=== PATIENT | female | born 1970 | race Caucasian/White ===

== ENCOUNTER 2021-01-04 11:00 | Outpatient (REF) | payer OTHER, SELFPAY ==
--- NOTE | ~2021-01-04 | MM_ITS ---
EXAMINATION: MM DIAGNOSTIC DIGITAL BREAST TOMOSYNTHESIS, LEFT CLINICAL INFORMATION: Short interval six-month follow-up probable benign tightly grouped calcifications mid 12:00 left breast. No known family history breast cancer. The lifetime risk of breast cancer based on the Tyrer-Cuzick Model is 8%. COMPARISON: Mammography: 07/05/2020, 06/25/2020 (BI-RADS 0), 03/14/2019 TECHNIQUE: Digital breast tomosynthesis is performed in both the craniocaudal and mediolateral oblique views along with computer-aided detection (CAD). Synthesized 2D images are generated from the tomosynthesis. Additional magnification left CC and magnification left ML views are obtained. FINDINGS: There are scattered areas of fibroglandular density (ACR BI-RADS breast composition Category b). Parenchymal pattern is similar to prior studies. There is no interval mass or architectural abnormality or developing density. The tightly grouped calcifications mid 12:00 position for follow-up appear round with 2 larger oval foci. No significant change from prior magnification views. Left breast calcifications will be reassessed again at time of annual bilateral mammography, due in 6 months. Results are provided to the patient at time of visit by the technologist. MM/MM tomosynthesis diagnostic LT IMPRESSION: Probable benign calcifications mid 12:00 position similar to prior diagnostic exam. ASSESSMENT: BI-RADS 3: Probably Benign RECOMMENDATION: Diagnostic mammography at time of annual bilateral exam, due in 6 months. This patient's information was entered into a reminder system with a target due date for their next mammogram.
== END 2021-01-04 11:01 | disposition home or self-care (01) ==
LOC: HO.MAMMO 11:00
PROVIDERS: PCP Internal Medicine; Visit Provider Internal Medicine
DX: R92.0 Mammographic microcalcification found on diagnostic imaging of breast (principal)
CPT/HCPCS: 77061; 77065

== ENCOUNTER → 2021-02-01 12:43 | Outpatient (BNVA) | payer OTHER, SELFPAY | PROVIDERS: Visit Provider Student in an Organized Health Care Education/Training Program | DX: G56.03 Carpal tunnel syndrome, bilateral upper limbs (principal) | CPT/HCPCS: 99212 ==

== ENCOUNTER 2021-02-25 08:13 | Outpatient (REF) | payer OTHER, SELFPAY ==
--- NOTE | 2021-02-25 15:37 | MHC.AU.ANR ---
Adult Audiological Evaluation Date of Visit: 02/25/21 Reason for Appointment: Audiological evaluation. Patient reports occasional ear noises that she describes as a pulsing. The last time she noticed it was ~ 3 weeks ago. She believes she hears it in both ears. She denies any concerns for her hearing. Does patient feel they have a hearing loss?: No Has hearing been tested previously?: No Hearing Handicap Inventory: HHIE SCORE: 0 Based on HHIE score, patient has: No perceived hearing handicap Medical History: Medical History: Unremarkable Medication List: Doxycycline 50 mg, Naproxen 500 mg Otoscopy: Right Ear: Unremarkable Left Ear: Unremarkable Tympanometry: Tympanometry performed due to: To assess integrity of the middle ear system Right Ear: Normal Middle Ear System (Type A) Left Ear: Reduced Middle Ear Compliance (Type As) Hearing Evaluation: Transducer(s) Used: Insert Earphones, Bone Conduction Method: Conventional Audiometry Stimuli Used: Pure Tones Right Ear: Description of Hearing: Normal hearing from 250-8000 Hz. Left Ear: Description of Hearing: Normal hearing from 250-8000 Hz, with a slight conductive component at 500 and 4000 Hz. Thresholds are 5-15 dBHL worse than those in the right ear. Speech Recognition Threshold (SRT): Method Used: Monitored Live Voice Stimuli Used: Spondee Words Right Ear: 0 dBHL Left Ear: 5 dBHL Word Discrimination: Method: Recorded Lists Word Lists Used: NU-6 Right Ear: 100% at 40 dBHL Left Ear: 100% at 45 dBHL Recommendations: Audiological re-evaluation in one year or sooner if ear noises worsen or become more frequent or if changes to hearing are noted. Amplification is not warranted at this time. Diagnosis: Primary Diagnosis: H69.92 Unspecified Eustachian Tube Dysfunction, Left Ear Services Performed: Services Performed: Comprehensive Audiological Evaluation (CPT 48935) Tympanometry (CPT 72626) Signature: Student/Clinical Fellow: No
== END 2021-02-25 08:14 | disposition home or self-care (01) ==
LOC: HO.SH 08:13
PROVIDERS: Visit Provider Internal Medicine
DX: H69.92 Unspecified Eustachian tube disorder, left ear (principal)
CPT/HCPCS: 92557; 92567

== ENCOUNTER 2021-03-10 09:50 | Outpatient (REF) | payer OTHER, SELFPAY ==
--- NOTE | 2021-03-10 09:53 | EMG_ITS ---
Right median and ulnar motor and sensory studies were performed. Right radial sensory study was performed and paraspinal muscles were tested with needle. IMPRESSION: 1. 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 2. No evidence of radiculopathy. MD RAMILA Tapia/TORRIE / [id number]
== END 2021-03-10 09:51 | disposition home or self-care (01) ==
LOC: HO.NEURO 09:50
PROVIDERS: PCP Internal Medicine; Visit Provider Student in an Organized Health Care Education/Training Program
DX: G56.03 Carpal tunnel syndrome, bilateral upper limbs (principal); R20.0 Anesthesia of skin
CPT/HCPCS: 95886; 95909

== ENCOUNTER → 2021-03-15 15:12 | Outpatient (BNVA) | payer OTHER, SELFPAY | PROVIDERS: PCP Internal Medicine; Visit Provider Student in an Organized Health Care Education/Training Program | DX: G56.03 Carpal tunnel syndrome, bilateral upper limbs (principal) | CPT/HCPCS: 99212 ==

== ENCOUNTER 2021-07-08 12:26 | Outpatient (REF) | payer OTHER, SELFPAY ==
--- NOTE | ~2021-07-08 | MM_ITS ---
EXAMINATION: MM DIAGNOSTIC DIGITAL BREAST TOMOSYNTHESIS, BILATERAL CLINICAL INFORMATION: Due for yearly. Also follow-up probable benign tightly grouped calcifications mid 12:00 left breast. The lifetime risk of breast cancer based on the Tyrer-Cuzick Model is 8%. COMPARISON: Mammography: 01/04/2021, 07/05/2020, 06/25/2020 (BI-RADS 0), 03/25/2019, 03/14/2019. TECHNIQUE: Digital breast tomosynthesis is performed in both the craniocaudal and mediolateral oblique views along with computer-aided detection (CAD). Synthesized 2D images are generated from the tomosynthesis. Additional magnification views left breast are obtained in the CC and ML x2 projections. FINDINGS: There are scattered areas of fibroglandular density (ACR BI-RADS breast composition Category b). Parenchymal pattern is similar to prior studies. There is no interval mass or architectural abnormality. No developing density. There are scattered calcifications in each breast. No suspicious changes. The left breast calcifications for follow-up are similar to prior diagnostic exam. They are tightly grouped with 2 coarse smooth round calcifications and adjacent smaller fine calcifications. They will be reassessed again at next bilateral annual mammography. Results are provided to the patient at time of visit by the technologist. MM/MM tomosynthesis diagnostic BI IMPRESSION: 1. Left: Calcifications mid 12:00 position are stable from prior diagnostic exam, probably benign. 2. Right: No mammographic evidence of malignancy. ASSESSMENT: BI-RADS 3: Probably Benign RECOMMENDATION: Diagnostic mammography at time of next annual exam, due in 12 months. This patient's information was entered into a reminder system with a target due date for their next mammogram.
== END 2021-07-08 12:27 | disposition home or self-care (01) ==
LOC: HO.MAMMO 12:26
PROVIDERS: PCP Internal Medicine; Visit Provider Internal Medicine
DX: R92.1 Mammographic calcification found on diagnostic imaging of breast (principal)
CPT/HCPCS: 77062; 77066

== ENCOUNTER 2022-08-01 14:21 | Outpatient (REF) | payer OTHER, SELFPAY ==
--- NOTE | ~2022-08-01 | MM_ITS ---
EXAMINATION: MM DIAGNOSTIC DIGITAL BREAST TOMOSYNTHESIS, BILATERAL CLINICAL INFORMATION: Due for yearly. Follow-up probable benign tightly grouped calcifications mid 12:00 left breast adjacent to benign coarse calcification. TC score 8%. No known family history breast cancer. COMPARISON: Mammography: 07/08/2021, 01/04/2021, 07/05/2020, 06/25/2020 (BI-RADS 0) 03/25/2019, 03/14/2019 TECHNIQUE: Digital breast tomosynthesis is performed in both the craniocaudal and mediolateral oblique views along with computer-aided detection (CAD). Synthesized 2D images are generated from the tomosynthesis. Additional left magnification CC and left magnification ML views are obtained. FINDINGS: There are scattered areas of fibroglandular density (ACR BI-RADS breast composition Category b). Breast parenchymal pattern is similar to prior exams and there is no developing density or interval mass or architectural abnormality. The axilla and skin contours are unremarkable. No abnormal calcifications on the right. Left breast calcifications for follow-up, fine adjacent to coarse calcification mid central 12:00 position are stable to decreased. No increasing calcifications or interval pleomorphic changes or ductal distribution. The calcifications are now considered to be benign. Results are provided to the patient at time of visit by the technologist. MM/MM tomosynthesis diagnostic BI IMPRESSION: -No mammographic evidence of malignancy. -The calcifications left breast for follow-up are now considered to be benign. ASSESSMENT: BI-RADS 2: Benign RECOMMENDATION: Routine annual mammography screening. This patient's information was entered into a reminder system with a target due date for their next mammogram.
== END 2022-08-01 14:22 | disposition home or self-care (01) ==
LOC: HO.MAMMO 14:21
PROVIDERS: PCP Internal Medicine; Visit Provider Internal Medicine
DX: R92.1 Mammographic calcification found on diagnostic imaging of breast (principal)
CPT/HCPCS: 77062; 77066

== ENCOUNTER 2022-12-15 15:36 | Outpatient (REF) | payer OTHER, SELFPAY ==
--- NOTE | ~2022-12-15 | XR_ITS ---
EXAMINATION: XR KNEE AP STANDING CLINICAL INFORMATION: Pain in left knee COMPARISON: Right knee radiographs 09/21/2016 TECHNIQUE: AP bilateral standing view of the knees was obtained. FINDINGS: Bones and soft tissues are normal. No fracture or joint effusion. Alignment is anatomic. There is minimal medial joint space narrowing bilaterally. No abnormal soft tissue calcification. XR/XR knee standing BI IMPRESSION: Minimal medial compartmental narrowing bilaterally.
[2022-12-15 15:53] LABS: MANUAL DIFF FLAG NO
[2022-12-15 17:19] LABS: Basophils Absolute Auto 0.1 X10*3/uL (0.0-0.2); Basophils Percent Auto 1.3 % (0-2); Eosinophils Absolute Auto 0.2 X10*3/uL (0.0-0.4); Eosinophils Percent Auto 3.2 % (0-4); Imm Gran Abs Auto 0.02 X10*3/uL (0.00-0.03); Imm Gran Pct Auto 0.3 % (0.0-0.4); Lymphocytes Absolute Auto 2.7 X10*3/uL (1.2-4.9); Lymphocytes Percent Auto 38.7 % (20-40); Mean Corpuscular HGB Conc 33.3 g/dl (31.0-35.0); Mean Corpuscular Hemoglobin 28.4 pg (27.0-33.0); Mean Corpuscular Volume 85.3 fL (80.0-98.0); Mean Platelet Volume 10.6 fL (9.4-12.3); Monocytes Absolute Auto 0.6 X10*3/uL (0.1-1.2); Monocytes Percent Auto 8.9 % (2-11); Neutrophils Absolute Auto 3.3 x10*3/uL (2.0-8.3); Neutrophils Percent Auto 47.6 % (45-73); Platelet Count 287 X10*3/uL (160-400); Red Blood Count 4.57 X10*6/uL (4.20-5.50); Red Cell Distribution Width 13.6 % (11.0-16.0); White Blood Count 6.9 X10*3/uL (4.8-10.8)
[2022-12-15 17:57] LABS: Alanine Aminotransferase 32 U/L (0-31); Albumin Level 4.3 g/dL (3.5-5.0); Alkaline Phosphatase 66 U/L (39-117); Anion Gap 13 (12-20); Aspartate Amino Transferase 24 U/L (5-31); Bilirubin Total 0.6 mg/dL (0.0-1.0); Blood Urea Nitrogen 13 mg/dL (9-16); C Reactive Protein 0.47 mg/dL (< or = 0.50); Calcium 9.4 mg/dL (8.4-10.2); Carbon Dioxide 24 mmol/L (22-29); Chloride 108 mmol/L (96-108); Cholesterol 206 mg/dL; Estimated Glomerular Filt Rate > 60; Glucose Random 84 mg/dL (60-115); HDL Cholesterol 45 mg/dL; LDL Cholesterol Calculated 123 mg/dl; Sodium 141 mmol/L (135-145); Triglycerides 193 mg/dL
[2022-12-15 18:19] LABS: Free T4 (Free Thyroxine) 0.89 ng/dL (0.71-1.85); Thyroid Stimulating Hormone 2.12 uIU/mL (0.32-4.0); Vitamin B12 301 pg/mL (200-900); Vitamin D 25-OH Total 27.7 ng/mL (>30)
[2022-12-15 18:26] LABS: Erythrocyte Sedimentation Rate 16 MM/HR (0-20)
== END 2022-12-15 15:37 | disposition home or self-care (01) ==
LOC: HO.LAB 15:36
PROVIDERS: PCP Internal Medicine; Visit Provider Internal Medicine
DX: M25.562 Pain in left knee (principal); E66.9 Obesity, unspecified; E78.00 Pure hypercholesterolemia, unspecified
CPT/HCPCS: 36415; 73565; 80053; 80061; 82306; 82607; 82746; 84439; 84443; 85025; 85652; 86140

== ENCOUNTER 2023-01-30 14:30 | Outpatient (REF) | payer OTHER, SELFPAY ==
--- NOTE | ~2023-01-30 | US_ITS ---
EXAMINATION: US THYROID CLINICAL INFORMATION: Nontoxic goiter, unspecified. COMPARISON: None available. TECHNIQUE: Linear transducer grayscale and color Doppler examination with attention to the region of the thyroid. FINDINGS: SIZE: Measurements of the thyroid lobes and nodules are given in sagittal, anteroposterior and transverse dimensions respectively. Right Thyroid Lobe: 5.0 x 1.6 x 1.6 cm, volume 6.7 mL. Parenchyma: The gland echotexture is homogeneous. Thyroid vascularity is normal. Left Thyroid Lobe: 4.4 x 2.0 x 2.4 cm, volume 10.5 mL. Parenchyma: The gland echotexture is homogeneous. Thyroid vascularity is normal. Isthmus: 0.6 cm in maximum AP dimension. Estimated total number of nodules greater than or equal to 1 cm: 1. Telephone Technician nodules are described as follows: 1. Location: Right superior mid. Size: 0.7 x 0.4 x 0.6 cm, volume 0.09 mL. Nodule characteristics: Composition: Solid (2). Echogenicity: Hypoechoic (2). Shape: Not taller than wide (0). Margins: Ill-defined (0). Echogenic Foci: None (0). ACR TI-RADS total points: 4 ACR TI-RADS category: 4 2. Location: Left mid. Size: 2.3 x 1.6 x 1.7 cm, volume 3.3 mL. Nodule characteristics: Composition: Solid/almost completely solid (2). Echogenicity: Hypoechoic (2). Shape: Not taller than wide (0). Margins: Smooth (0). Echogenic Foci: None (0). ACR TI-RADS total points: 4 ACR TI-RADS category: 4 3. Location: Isthmus left inferior. Size: 0.5 x 0.7 x 0.7 cm, volume 0.1 mL. Nodule characteristics: Composition: Solid (2). Echogenicity: Hypoechoic (2). Shape: Not taller than wide (0). Margins: Ill-defined (0). Echogenic Foci: None (0). ACR TI-RADS total points: 4 ACR TI-RADS category: 4 NODES: There are small lymph nodes in the right neck, the largest measuring 1.2 x 0.3 x 0.6 cm. US/US thyroid IMPRESSION: Mild thyromegaly with benign-appearing lymph nodes. None of these are suspicious. Recommend continued follow-up. ACR TI-RADS RECOMMENDATION REFERENCE: Ultrasound-guided fine-needle aspiration, followup ultrasound, no further follow up. * TR1 (0 point) and TR2 (2 points): No FNA or follow up. * TR3 (3 points): FNA if more than or equal to 2.5 cm in maximum dimension, followup ultrasound in 1, 3 and 5 years if 1.5 to 2.4 cm in maximum dimension. * TR4 (4-6 points): FNA if more than or equal to 1.5 cm in maximum dimension, followup ultrasound in 1, 2, 3 and 5 years if 1 to 1.4 cm in maximum dimension. * TR5 (more than or equal to 7 points): FNA if more than or equal to 1 cm in maximum dimension, followup ultrasound every year for 5 years if 0.5 to 0.9 cm in maximum dimension. * TR3, TR4 or TR5 nodules that are below the size threshold for followup receive no follow up.
== END 2023-01-30 14:31 | disposition home or self-care (01) ==
LOC: HO.US 14:30
PROVIDERS: PCP Internal Medicine; Visit Provider Internal Medicine
DX: E04.9 Nontoxic goiter, unspecified (principal)
CPT/HCPCS: 76536

== ENCOUNTER → 2023-02-12 07:56 | Outpatient (BNVA) | payer OTHER, SELFPAY | PROVIDERS: PCP Internal Medicine; Visit Provider Advanced Practice Midwife ==

== ENCOUNTER 2023-02-28 09:03 | Outpatient (REF) | payer OTHER, SELFPAY ==
--- NOTE | ~2023-02-28 | XR_ITS ---
EXAMINATION: XR KNEE, LEFT CLINICAL INFORMATION: Left knee pain. COMPARISON: None available. TECHNIQUE: Limited 2 views of the left knee. FINDINGS: Bones and soft tissues are normal. No fracture or joint effusion. Alignment is anatomic. Joint spaces are well maintained. No abnormal soft tissue calcification. XR/XR knee LT 2V IMPRESSION: Limited two-view study. No overt acute abnormality. If pain persists or worsens, a 4 view left knee radiographic study is recommended.
== END 2023-02-28 09:04 | disposition home or self-care (01) ==
LOC: HO.HOSX 09:03
PROVIDERS: Visit Provider Physician Assistant
DX: M17.12 Unilateral primary osteoarthritis, left knee (principal)
CPT/HCPCS: 20610; 73560; 99202; J1040

== ENCOUNTER 2023-04-26 06:25 | Outpatient (REF) | payer OTHER, SELFPAY ==
--- NOTE | ~2023-04-26 | XR_ITS ---
EXAMINATION: XR KNEE, RIGHT CLINICAL INFORMATION: Right knee pain. COMPARISON: Most recent right knee radiographs dated 12/15/2022. TECHNIQUE: Clute and lateral views of the right knee. FINDINGS: Tiny patellofemoral compartment marginal osteophytes. No osseous erosion. No fracture or dislocation. Small joint effusion. No abnormal soft tissue calcification. XR/XR knee RT 2V IMPRESSION: Minimal patellofemoral arthrosis and small joint effusion.
== END 2023-04-26 06:26 | disposition home or self-care (01) ==
LOC: HO.HOSX 06:25
PROVIDERS: Visit Provider Physician Assistant
DX: M17.0 Bilateral primary osteoarthritis of knee (principal)
CPT/HCPCS: 20610; 73560; 99212; J1040

== ENCOUNTER 2023-05-01 13:43 | Outpatient (REF) | payer OTHER, SELFPAY | END 2023-05-01 13:44 | disposition home or self-care (01) | LOC: HO.SH 13:43 | PROVIDERS: Visit Provider Internal Medicine | DX: Z01.118 Encounter for examination of ears and hearing with other abnormal findings (principal); H93.293 Other abnormal auditory perceptions, bilateral | CPT/HCPCS: 92550; 92557 ==

== ENCOUNTER 2023-06-13 08:00 | Outpatient (RCR) | payer OTHER, SELFPAY ==
--- NOTE | 2023-06-11 10:21 | MHC.PT.EP ---
[facility] [place] [facility] [place] [facility] [place] [employer] [facility] [address] [phone] F: [phone] F: [phone] F: [phone] F: [phone] Physical Therapy Plan of Care Date of Evaluation: Date of Surgery: N/A Diagnosis: Unilateral primary osteoarthritis, left knee Assessment: Pt is a pleasant and motivated 52yo F who presents to PT with knee pain. She presents to PT with current impairments in pain, decreased R knee ROM, decreased quad strength, decreased hip/glute strength, decreased muscle length, decreased balance/proprioception and impaired gait. She is limited functionally by standing, stair navigation, walking, bending, and sleeping. She is an excellent candidate for skilled PT in order to address current impairments to facilitate return to PLOF. She is recommended to be seen 2x/week for 4 weeks and will be reassessed at that time. Frequency and Duration: The patient will be seen 2x/week for 4 weeks Short Term Goals: Pt will be I with HEP to promote self management of symptoms Pt will improve B hip ABD strength by at least 1/2 grade Management Architect Goals: Pt will achieve full ROM and strength B knees to assist with standing and walking Pt will ascend and descend 1 flight of stairs with reciprocal pattern with minimal to no discomfort Pt will demonstrate improvements in function as evidenced by statistically significant improvement in LEFI outcome measure Treatment Plan: Modalities to reduce pain, spasms and effusion. Manual therapy to restore motion and function. Therapeutic exercise to improve strength and flexibility. Neuromuscular re-education for posture and balance. Therapeutic activities to return to functional activities of daily living. Electronically signed by: Karime Borges, PT, DPT Please sign and return to therapist. Thank you for your referral.
--- NOTE | 2023-07-30 10:50 | MHC.PT.DC ---
[facility] [place] Office [place] Office [place] Office [address] Ailyn Medina [address] [phone] F: [phone] F: [phone] F: [phone] F: [phone] Physical Therapy Discharge Report Diagnosis: Unilateral primary osteoarthritis, left knee Date of Surgery: N/A Date of Evaluation: 06/11/23 Date of Discharge: 07/30/23 Treatments to Date: 2 Cancellations to Date: No Shows to Date: 2 Discharge Status: Visit Non-compliance Discharge Summary: Pt was seen for PT from 06/11/23-06/13/23. Her last attended appointment was 06/13/23. She has had 2 no-show appointments since SOC. She is being D/C from skilled PT per [facility] attendance policy and visit non-compliance. Pt current level of function unknown at this time. Electronically signed by: Karime Borges, PT, DPT Please sign and return to therapist. Thank you for your referral.
== END 2023-07-30 10:47 | disposition home or self-care (01) ==
LOC: HO.PT 08:00
PROVIDERS: PCP Internal Medicine; Visit Provider Physician Assistant
DX: M17.0 Bilateral primary osteoarthritis of knee (principal)
CPT/HCPCS: 97110; 97162

== ENCOUNTER 2023-06-14 11:21 | Outpatient (AMB) | payer OTHER, SELFPAY ==
--- NOTE | 2023-06-14 11:52 | MHC.OFFVIS ---
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 She was referred by Dr. Harrell recommended she come and she does not like coming to doctor visits so she has been putting it off. 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 She has 2 children and her oldest 1 is 30 years old and her youngest is 24+, she delivered both of them vaginally at [facility] through the midwifery group. She does get her mammograms and she had 1 somewhat recently. She is not worried about STIs but is open to testing while we doing the exam because it has been a while. She has not had a period in 8 months. [facility] Medical History Temporomandibular joint dysfunction Tinnitus of both ears Vision impairment Surgical History History of tubal ligation Family History Father No problems noted. Mother No problems noted. 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 Current occupational exposures/hazards: No Cognitive needs: No Hearing needs: No Vision needs: Yes Female Reproductive History Menstrual Age of menopause: 52 (8 month ago ) Total pregnancies: 4 Number of Living Children: 2 Ab spontaneous: 2 Date of last pap smear: 10/02/17 Physical Exam Vital Signs: Last Vital Signs BP 126/84 06/14/23 11:59 BMI result Body Mass Index 32.9 Const General: healthy appearing, comfortable, no acute distress, well developed and alert Nutritional Appearance: average body habitus Orientation/consciousness: patient oriented x3 Limitations: no limitations HEENT Head: Yes normocephalic Neck Neck: Yes normal visual inspection Chest Chest palpation & inspection: normal inspection of the chest Breast/axilla inspection: normal inspection of the breasts and normal inspection of the axillae Breast/axilla palpation: normal palpation of the breasts and normal palpation of the axillae Resp Effort & Inspection: normal respiratory effort GI Inspection: Yes normal to inspection, No Abdominal wall edema and No distended Palpation (GI): Soft to palpation and nontender Other: External exam within normal limits. Vagina moist cervix is multiparous with clear to normal looking mucus. Cervix is long close thick mobile nontender uterus is anteverted nontender adnexa nontender good tone with Kegel. General: Yes bladder normal to palpation External Female Exam: normal external appearance and normal appearance of the urethra Speculum Exam - Vagina: normal appearance of the vagina, normal palpation and normal vaginal discharge Speculum Exam - Cervix: normal appearance of the cervix, normal palpation and nontender Bimanual exam- vagina & uterus: normal bimanual exam, normal palpation, uterine size normal, bladder normal to palpation, consistency normal, normal palpation, uterine mobility normal, uterine shape normal, No Cervical tenderness present, non-tender and no cervical motion tenderness Bimanual Exam- Adnexa, other: normal adnexae, no masses, normal and No adnexal tenderness Neuro General: patient oriented x3 Assessment & Plan Assessment & Plan (1) Cervical cancer screening: Comment: Previous Pap 2017 no history of abnormals. Pap done 06/14/2023. Consider sooner screening than 5 years if this is negative. Code(s): Z12.4 - Encounter for screening for malignant neoplasm of cervix (2) Breast cancer screening: Code(s): Z12.39 - Encounter for other screening for malignant neoplasm of breast (3) Well woman exam with routine gynecological exam: Code(s): Z01.419 - Encounter for gynecological examination (general) (routine) without abnormal findings Plan -----Discussed in this visit the following: healthy balanced diet, regular and consistent exercise, getting recommended health screens, doing the best she can for her particular health concerns, kegel exercises, pap smear screening and followup recommendations, mammography screening and SBE, normal changes in cycles in her life stage--- . Discussed self-care in general and applauded her efforts to try an eat better and lose a little weight and exercise. She and her are taking next week off to go to [place] for their anniversary. She is up-to-date on her mammograms if this Pap smear is normal if she had had regular screening she would have Pap smears every 5 years but since she has not been in a while it might be beneficial to have another Pap smear in 3 years I did tell her that we recommend annual exams but she told me she does not want to do that. She gets other lab work and screens through her primary care provider. Coding Level of Care Code New Pt Prev Care 40-64y([id number]) Diagnoses Cervical cancer screening Z12.4 Breast cancer screening Z12.39 Well woman exam with routine gynecological exam Z01.419
[2023-06-14 11:59] VITALS: BP 126/84; BMI 32.9
== END 2023-06-14 12:51 | disposition home or self-care (01) ==
LOC: HO.HWS 11:21
PROVIDERS: PCP Internal Medicine; Visit Provider Advanced Practice Midwife
DX: Z01.419 Encounter for gynecological examination (general) (routine) without abnormal findings (principal); Z12.4 Encounter for screening for malignant neoplasm of cervix; Z12.39 Encounter for other screening for malignant neoplasm of breast
CPT/HCPCS: 99386

== ENCOUNTER 2023-06-14 11:21 | Outpatient (REF) | payer OTHER, SELFPAY ==
[2023-06-15 05:14] LABS: CT PCR NOT DETECTED (Not Detect.); NG PCR NOT DETECTED (Not Detect.)
[2023-06-15 11:46] LABS: BV Int Neg Control Negative (Negative); BV Int Pos Control Positive (Positive)
[2023-06-19 05:09] LABS: HPV mRNA E6/E7 rflx Not Detected (Not Detected)
== END 2023-06-14 11:22 | disposition home or self-care (01) ==
LOC: HO.LNP 11:21
PROVIDERS: PCP Internal Medicine; Visit Provider Advanced Practice Midwife
DX: Z01.419 Encounter for gynecological examination (general) (routine) without abnormal findings (principal); Z11.51 Encounter for screening for human papillomavirus (HPV)
CPT/HCPCS: 0353U; 87480; 87510; 87624; 87660; 88142

== ENCOUNTER 2023-07-01 13:43 | Emergency (ER) | payer OTHER, SELFPAY ==
[2023-07-01 13:55] VITALS: BP 147/87; PULSE 74; RESP 18; TEMP 36.8; O2SAT 97; BMI 32.9
[2023-07-01 14:16] LABS: Bacteria Urine 1+ (None Seen); Hyaline Casts Urine 0-2 /LPF (0-2); WBC Urine 0-5 /HPF (0-5)
[2023-07-01 14:18] LABS: Appearance Urine Clear; Color Urine Yellow; Glucose Urine UA Negative (Negative); Leukocyte Esterase Urine Negative (Negative); Nitrite Urine Negative (Negative); PH 5.5 (5.0-9.0); Urine Blood Negative (Negative); Urine Ketones Negative (Negative); Urine Protein Negative (Neg-Trace)
[2023-07-01 16:26] VITALS: BP 133/80; PULSE 80; RESP 16; TEMP 36.4; O2SAT 97
--- NOTE | 2023-07-01 16:44 | ED_ITS ---
HPI - Back Pain/Injury General Chief Complaint: Abdominal Pain Stated Complaint: R side back pain Time Seen by Provider: 07/01/23 16:18 Source: patient Mode of arrival: ambulatory Limitations: no limitations History of Present Illness HPI Narrative: 52-year-old female here with complaints of right lower back pain for the last 1 week with no known injury or trauma. No radiation of pain. No weakness/numbness/tingling in the lower extremities. No bowel or bladder incontinence. No urinary symptoms, diarrhea, constipation, vomiting, fevers. Patient reports she had been taking naproxen for intermittent aches and pains has not tried taking it for this back pain. She has not tried any [id number] medications. She has not tried any heat, ice, stretching at home. She has not seen her primary care doctor for this. Related Data Previous Rx's Medication Instructions Recorded KNEE brace R and L #1 ea 01/19/23 acetaminophen 650 mg 650 mg PO Q12H 30 days #60 tabs 03/15/23 tablet,extended release (Tylenol Arthritis Pain) naproxen 500 mg tablet,delayed 500 mg PO Q12H #60 tabs 06/12/23 release cyclobenzaprine 10 mg tablet 10 mg PO TID PRN muscle spasm #10 07/01/23 tabs lidocaine 5 % topical patch 1 patch topical DAILY #15 ea 07/01/23 (Lidoderm) Allergies Allergy/AdvReac Type Severity Reaction Status Date / Time No Known Allergies Allergy Verified 07/01/23 13:57 [No Known Allergies*] Review of Systems Review of Systems: Yes all other systems are reviewed and are negative Constitutional: Constitutional: Reports no additional constitutional complaints, Denies body ache(s), Denies chills, Denies fever(s), Denies headache(s) and Denies weakness Eyes: Eyes: Reports no additional eye complaints and Denies change in vision ENT: Reports system reviewed and no additional complaints, except as documented, Denies dizziness, Denies headache(s), Denies nasal congestion, Denies nasal discharge and Denies neck pain Cardiovascular: Cardiovascular: Reports no additional cardiovascular complaints, Denies chest pain, Denies leg edema and Denies dyspnea Respiratory: Respiratory: Reports no additional respiratory complaints, Denies cough and Denies dyspnea Gastrointestinal: Gastrointestinal: Reports no additional gastrointestinal complaints, Denies abdominal pain, Denies diarrhea, Denies nausea and Denies vomiting Genitourinary: Genitourinary: Reports no additional female genitourinary complaints and Denies urinary incontinence Musculoskeletal: Musculoskeletal: Reports no additional musculoskeletal complaints, Reports back pain, Denies arthralgias, Denies joint swelling, Denies neck pain, Denies numbness and Denies tingling Integumentary/Breasts: Skin/Breast: Reports system reviewed and no additional complaints, except as docu and Denies rash Neurologic: Reports system reviewed and no additional complaints, except as documented, Denies Abnormal speech present, Denies dizziness, Denies headach e(s), Denies numbness, Denies tingling and Denies weakness PMFSH Past Medical History Attestation statement: The following information was validated with the patient. Source: old records reviewed and nursing notes reviewed Medical History Temporomandibular joint dysfunction Tinnitus of both ears Vision impairment Surgical History History of tubal ligation Family History Family History Father No problems noted. Mother No problems noted. 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 Current occupational exposures/hazards: No Cognitive needs: No Hearing needs: No Vision needs: Yes Physical Exam Vital Signs: Vital Signs: Last Vital Signs Temp 97.6 F 07/01/23 16:26 Pulse 80 07/01/23 16:26 Resp 16 07/01/23 16:26 BP 133/80 07/01/23 16:26 Pulse Ox 97 07/01/23 16:26 O2 Del Method Room Air 07/01/23 16:26 BMI result Body Mass Index 32.9 Const: General: cooperative, healthy appearing, comfortable and no acute distress Orientation/consciousness: patient oriented x3 Limitations: no limitations HEENT: Head: Yes normal to inspection Ears: hearing grossly normal bilaterally General nose exam: Normal external nose present Face and sinus: Yes normal facial exam Mouth: Normal oral and palatal mucosa present Throat: Yes posterior oropharynx normal Eyes: General: appearance normal, both eyes and all related structures Pupils: Equal, round and reactive pupils present Neck: Neck: Yes normal visual inspection Chest: Chest palpation & inspection: normal inspection of the chest Resp: Effort & Inspection: normal respiratory effort Auscultation: clear to auscultation bilaterally Cardio: Rate: regular rate Rhythm: regular rhythm Peripheral pulses: Peripheral pulses 2+ throughout GI: Inspection: Yes normal to inspection Palpation (GI): Soft to palpation and nontender Auscultation: normal bowel sounds : General: Yes no CVA tenderness Back/Spine/Pelvis: Other: Tenderness on palpation to the right lumbar soft tissue with no midline tenderness, step-offs deformities. Pain is worsened with flexion extension the spine Back: no CVA tenderness Thoracic/Lumbar Spine: thoracic and lumbar spine normal to inspection Skin: General skin exam: no rashes or lesions noted Neuro: General: patient oriented x3, moves all extremities, no focal motor deficits and normal sensation to monofilament Cranial nerves: Yes CN's II-XII intact bilaterally, Yes Equal, round and reactive pupils present, Yes Bilaterally intact EOM present, Yes Nystagmus not present, Yes Normal facial strength present and Yes Midline tongue present Cognition (Neuro): normal cognition Speech: No Abnormal speech present Gait exam (Neuro): Normal gait present Motor exam (neuro): 5/5 motor strength present throughout Sensory Exam: Normal double simultaneous stimulation for sensation Deep tendon reflexes (DTR's): Right patellar reflex intensity grade: 2+ and Left patellar reflex intensity grade: 2+ Extrem: General: Yes normal to inspection Medical Decision Making Medical Decision Making MDM Narrative: 52-year-old female here with complaints of right lower back pain the last 1 week with no known injury or trauma. No additional complaints On exam patient has tenderness the right lumbar soft tissue with no midline tenderness, step-offs deformities. No CVA tenderness. No abdominal pain. Normal neurological exam with no focal deficits. Likely lumbar strain. Patient will be discharged home with recommendations to start restart NSAIDs, add Flexeril and medicated patches Differential Diagnosis Differential Diagnoses: The differential diagnosis associated with the presentation includes Lumbar strain Low concern for cauda equina, cord compression, epidural abscess with normal neurological exam with no red flag symptoms, no history of IV drug abuse, immunocompromised state Low concern for malignancy-no red flag symptoms such as weight loss, night sweats, history of malignancy Low concern for AAA with gradual onset Low concern for renal colic, pyelonephritis with no CVA tenderness, no urinary symptoms, normal urine Lab Data MDM Lab Attestation statement: I reviewed the patient's lab results. Unremarkable Labs: Lab Results 07/01/23 Range/Units 14:02 Urine Color Yellow Urine Appearance Clear Urine pH 5.5 (5.0-9.0) Ur Specific Spangler 1.020 (1.005-1.025) Urine Protein Negative (Neg-Trace) mg/dL Urine Glucose (UA) Negative (Negative) mg/dL Urine Ketones Negative (Negative) mg/dL Urine Blood Negative (Negative) Urine Nitrite Negative (Negative) Ur Leukocyte Esterase Negative (Negative) Urine RBC 6-10 H (0-2) /HPF Urine WBC 0-5 (0-5) /HPF Ur Squamous Epith Cells 6-10 (0-2) /HPF Urine Bacteria 1+ (None Seen) Hyaline Casts 0-2 (0-2) /LPF Prescription Management I considered prescription management with: Pain Medication see discussion above Discharge Plan Discharge Clinical Impression: Acute lumbar myofascial strain Patient Disposition: Home, Self-Care Instructions: Acute Low Back Pain (ED), Lower Back Exercises (ED) Additional Instructions: Heat or ice to the area Gentle stretching No heavy lifting or bending Please follow-up with primary care doctor for any continued symptoms Return for any worsening pain, incontinence of urine or stool, fevers, vomiting, abdominal pain Continue naproxen Prescriptions: New cyclobenzaprine 10 mg tablet 10 mg PO TID PRN (Reason: muscle spasm) Qty: 10 0RF lidocaine [Lidoderm] 5 % adhesive patch,medicated 1 patch topical DAILY Qty: 15 0RF Rx Instructions: leave on most painful area for up to 12 hrs No Action naproxen 500 mg tablet,delayed release (DR/EC) 500 mg PO Q12H Qty: 60 1RF (DME) KNEE brace R and L See Rx Instructions .Route .MEDSUPPLY Qty: 1 0RF Rx Instructions: As directed acetaminophen [Tylenol Arthritis Pain] 650 mg tablet extended release 650 mg PO Q12H 30 Days Qty: 60 2RF Referrals: Julio Cesar,Renita Barrientos MD [Primary Care Provider] - 1 week (continued symptoms ) Interventions: ED Discharge Assessment Last Done: 07/01/23 16:54 Discharge Date/Time: 07/01/23 16:54
== END 2023-07-01 16:54 | disposition home or self-care (01) ==
PROVIDERS: Emergency Provider Emergency Medicine; PCP Internal Medicine
DX: S39.012A Strain of muscle, fascia and tendon of lower back, initial encounter (principal); X58.XXXA Exposure to other specified factors, initial encounter; Y93.9 Activity, unspecified; Y92.9 Unspecified place or not applicable; Y99.9 Unspecified external cause status
CPT/HCPCS: 81001; 99284

== ENCOUNTER 2023-07-23 13:27 | Outpatient (AMB) | payer OTHER, SELFPAY ==
[2023-07-23 13:30] VITALS: BP 116/80; BMI 33.2
--- NOTE | 2023-07-23 13:30 | MHC.PC.OV ---
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 Accompanied by: Self / Same As Patient Allergies No Known Allergies [No Known Allergies*] Allergy (Verified 07/23/23 13:34) Tobacco use date assessed: 01/19/23 Dental Screening Dental Screen Date: 07/23/23 Did you have a dental visit in the last 12 months?: Yes Did you have a dental problem in the last 6 months where you did not have access to dental care?: No Was dental information given to patient?: Patient has dentist HPI Obesity, osteoarthritis HPI Details 52-year-old obese female with osteoarthritis of both knees last seen in January 2023 concerns about thyroid enlargement and an ultrasound done patient was referred to Orthopedics also. Colonoscopy is up-to-date mammogram is due this month. Patient was recently in the hospital in June 2023 for right lower back pain patient was given muscle relaxant. With the knee pain has seen orthopedics right knee injection done. Patient had a hearing test done showing some asymmetry. Thyroid ultrasound done in January showing mild enlargement and nodule seen but nothing suspicious. Review of the labs noted a urinalysis having hematuria. Patient did complain about right sided flank pain but deny any dysuria, fever or frequency. [facility] Medical History Temporomandibular joint dysfunction Tinnitus of both ears Vision impairment Surgical History History of tubal ligation Family History Father No problems noted. Mother No problems noted. 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 Ryan Leone, Betty Smyth, Tru iFshman and colleagues, with an educational yaneli from [employer]. Physical exam (Primary Care) Vital Signs: Last Vital Signs BP 116/80 07/23/23 13:30 BMI result Body Mass Index 33.2 Tobacco/Smoking Status: Tobacco use Status Tobacco use date assessed 01/19/23 07/23/23 13:36 Patient Tobacco Use Status Never used Tobacco 07/23/23 13:36 e-Cigarette/Vaping Use Never Used 07/23/23 13:36 Thrive Assessment: Date of Thrive Assessment Date Thrive assessed 12/15/22 07/23/23 13:36 Const General: alert; No acute distress Eyes Conjunctivae: conjunctivae normal Resp Auscultation: clear to auscultation bilaterally Cardio Rate: regular rate Rhythm: regular rhythm GI Inspection: Yes normal to inspection Extrem General: Yes normal to inspection and No edema Assessment and Plan Assessment & Plan (1) Osteoarthritis of knees, bilateral: Code(s): M17.0 - Bilateral primary osteoarthritis of knee Plan: Patient has followed up with orthopedics and recently had an injection on the right knee (2) Obesity (BMI 30-39.9): Code(s): E66.9 - Obesity, unspecified Plan: Diet and exercise (3) Tinnitus of both ears: Code(s): H93.13 - Tinnitus, bilateral Plan: Noted asymmetry on hearing and was advised that if it persist to seek ear nose and throat referral (4) Hematuria: Code(s): R31.9 - Hematuria, unspecified Plan: With ultrasound of the kidneys and repeat urinalysis requested Orders: Orders UA CC w/rflx Micro + Cult Today R30.0 - Dysuria, R31.9 - Hematuria, unspecified Urine Cytology Today R31.9 - Hematuria, unspecified US renal BI Today R31.9 - Hematuria, unspecified Coding Level of Care Code Est Pt Level 4 (90064) Diagnoses Osteoarthritis of knees, bilateral M17.0 Obesity (BMI 30-39.9) E66.9 Tinnitus of both ears H93.13 Hematuria R31.9
== END 2023-07-23 15:19 | disposition home or self-care (01) ==
PROVIDERS: PCP Internal Medicine; Visit Provider Internal Medicine
DX: M17.0 Bilateral primary osteoarthritis of knee (principal); E66.9 Obesity, unspecified; Z68.33 Body mass index [BMI] 33.0-33.9, adult; H93.13 Tinnitus, bilateral; R31.9 Hematuria, unspecified
CPT/HCPCS: 99214

== ENCOUNTER 2023-08-02 13:45 | Outpatient (REF) | payer OTHER, SELFPAY | END 2023-08-02 13:46 | disposition home or self-care (01) | LOC: HO.MAMMO 13:45 | PROVIDERS: PCP Internal Medicine; Visit Provider Internal Medicine | DX: Z12.31 Encounter for screening mammogram for malignant neoplasm of breast (principal) | CPT/HCPCS: 77063; 77067 ==

== ENCOUNTER → 2023-08-02 14:00 | Outpatient (BNV) | payer OTHER, SELFPAY | PROVIDERS: PCP Internal Medicine; Visit Provider Radiology Diagnostic Radiology | DX: Z12.31 Encounter for screening mammogram for malignant neoplasm of breast (principal) | CPT/HCPCS: 77063; 77067 ==

== ENCOUNTER 2024-01-22 12:46 | Outpatient (AMB) | payer OTHER, SELFPAY ==
[2024-01-22 12:48] VITALS: BP 138/88; PULSE 78; O2SAT 99; BMI 33.2
--- NOTE | 2024-01-22 12:48 | MHC.PC.OV ---
Vital Signs 01/22/24 12:48 Height 5 ft 7 in Weight 212 lb 0.2 oz BMI 33.2 BP 138/88 Blood Pressure Location Lt brachial Position Sitting Pulse 78 Pulse Source Pulse Oximeter Temp Source Skin Pulse Oximetry (%) 99 Oxygen Delivery Method Room Air Intake Visit Reasons: Annual Exam Intake Note: Patient is here today for a physical. 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 Allergies No Known Allergies [No Known Allergies*] Allergy (Verified 01/22/24 12:52) Medication List - Last Reconciled 01/22/24 by Renita Harrell MD cyclobenzaprine 10 mg PO TID PRN doxycycline hyclate 50 mg PO DAILY PRN [KNEE brace R and L As directed] naproxen 500 mg PO Q12H Tobacco use date assessed: 01/22/24 Dental Screening Dental Screen Date: 01/22/24 Did you have a dental visit in the last 12 months?: Yes Did you have a dental problem in the last 6 months where you did not have access to dental care?: No Was dental information given to patient?: Patient has dentist HPI Annual Exam HPI Details 53-year-old obese female with a history of knee osteoarthritis as well as tinnitus and hematuria last seen July 2023 patient is here for physical exam. Mammogram is up-to-date July 2023 colonoscopy last done in July 2019. [facility] Medical History (Updated 01/22/24 @ 13:15 by Renita Harrell MD) Thyroid enlargement Tinnitus of both ears Vision impairment Temporomandibular joint dysfunction Surgical History History of tubal ligation Family History Father No problems noted. Mother No problems noted. 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 1. Little interest or pleasure in doing things: not at all 2. Feeling down, depressed, or hopeless: not at all 3. Trouble falling or staying asleep, or sleeping too much: not at all 4. Feeling tired or having little energy: not at all 5. Poor appetite or overeating: not at all 6. Feeling bad about yourself - or that you are a failure or have let yourself or your family down: not at all 7. Trouble concentrating on things, such as reading the newspaper or watching television: not at all 8. Moving or speaking so slowly that other people could have noticed. Or the opposite - being so fidgety or restless that you have been moving around a lot more than usual: not at all 9. Thoughts that you would be better off or of hurting yourself in some way: not at all Total score: 0 Depression Screening Interpretation: Negative Depression Screening Done: Yes Source: Developed by Drs. Ryan Leone, Betty Smyth, Tru Fishman and colleagues, with an educational yaneli from [employer]. Thrive Questionnaire Date Thrive assessed: 01/22/24 I am a: Patient What is your living situation today?: I have a steady place to live Within the past 12 months, did the food you bought not last and you didn't have the money to get more?: Never true Within the past 12 months, did you worry whether your food would run out before you got money to buy more?: Never true Do you have trouble paying for medicines?: No Do you have trouble getting transportation to medical appointments?: No Do you have trouble paying your heating and electricity bill?: No Do you have trouble taking care of your child, family member or friend?: No Do you have trouble with day-to-day activities such as bathing, preparing meals, shopping, managing finances, etc.?: No Are you currently unemployed and looking for a job?: No Are you interested in more education?: No Please select the resources that you would like help with: None THRIVE Score: 0 AUDIT C Alcohol Use Questionnaire (AUDIT-C) 1. How often do you have a drink containing alcohol?: Never 2. How many drinks containing alcohol do you have on a typical day when you are drinking?: 1 or 2 3. How often do you have six or more drinks on one occasion?: Never Total Score: 0 JIMMIE-7 AMB Questionnaire JIMMIE-7 Date JIMMIE - 7 assessed: 01/22/24 Feeling nervous, anxious, or on edge: 0 = Not at all Not being able to stop or control worryin = Not at all Worrying too much about different things: 0 = Not at all Trouble relaxin = Not at all Being so restless that it is hard to sit still: 0 = Not at all Becoming easily annoyed or irritable: 0 = Not at all Feeling afraid as if something awful might happen: 0 = Not at all Total JIMMIE-7 score (0-4 normal; 5-9 mild; 10-14 moderate; 15-21 severe): 0 Source: Developed by Drs. Ryan Leone, Betty Smyth, Tru Fishman and colleagues, with an educational yaneli from [employer]. Review of Systems Const Denies poor appetite and Denies weakness Eyes Denies no additional complaints ENT Reports Normal hearing present, Denies dizziness, Denies nasal congestion, Denies tinnitus and Denies sore throat Card Denies chest pain, Denies syncope, Denies rapid heart rate and Denies dyspnea Resp Denies cough and Denies dyspnea GI Denies change in stool character, Reports constipation, Denies diarrhea, Denies nausea and Denies vomiting Denies urinary frequency, Denies difficulty voiding and Denies dysuria Neuro Reports Normal hearing present, Denies confusion, Denies dizziness, Denies syncope and Denies weakness Psych Denies confusion Physical exam (Primary Care) Vital Signs: Last Vital Signs Pulse 78 01/22/24 12:48 BP 138/88 01/22/24 12:48 Pulse Ox 99 01/22/24 12:48 Oxygen Delivery Method Room Air 01/22/24 12:48 BMI result Body Mass Index 33.2 Tobacco/Smoking Status: Tobacco use Status Tobacco use date assessed 01/22/24 01/22/24 12:50 Patient Tobacco Use Status Never used Tobacco 01/22/24 12:50 e-Cigarette/Vaping Use Never Used 01/22/24 12:50 PHQ-9: PHQ-9 Score PHQ-9: Total score 0 03/19/24 12:54 Depression Screening Interpretation: Negative Thrive Assessment: Date of Thrive Assessment Date Thrive assessed 01/22/24 01/22/24 12:50 Const General: No confusion Orientation/consciousness: No confusion HENMT Head: Yes normocephalic Ears: external ears normal and TM's normal bilaterally Face and sinus: Yes normal facial exam Mouth: moist mucous membranes Throat: Yes tonsils normal Eyes Conjunctivae: conjunctivae normal Pupils: Equal, round and reactive pupils present and Pupil accommodation reflex normal Direct Ophthalmoscopy: normal light reflex Neck Neck: No lymphadenopathy Thyroid: Thyroid normal Chest Chest palpation & inspection: normal inspection of the chest Resp Effort & Inspection: normal respiratory effort and no audible wheezes Auscultation: clear to auscultation bilaterally, no crackles, no wheezes and lung sounds not diminished Cardio Rate: regular rate Rhythm: regular rhythm Peripheral pulses: radial pulses present and dorsalis pedis present GI Palpation (GI): no masses Auscultation: normal bowel sounds and normoactive bowel sounds Rectal Exam - Female: deferred Skin General skin exam: no rashes or lesions noted Rashes: no rashes Neuro General: No confusion Cranial nerves: Yes Equal, round and reactive pupils present and Yes Normal hearing present Cognition (Neuro): normal cognition Gait exam (Neuro): Normal gait present Motor exam (neuro): 5/5 motor strength present throughout Deep tendon reflexes (DTR's): Right brachioradialis reflex intensity grade: 2+, Left brachioradialis reflex intensity grade: 2+, Right patellar reflex intensity grade: 2+ and Left patellar reflex intensity grade: 2+ Extrem General: No edema Assessment and Plan Assessment & Plan (1) Annual physical exam: Code(s): Z00.00 - Encounter for general adult medical examination without abnormal findings (2) Hematuria: Code(s): R31.9 - Hematuria, unspecified Plan: Patient was requested to have on ultrasound of the kidneys but this was not done (3) Osteoarthritis of knees, bilateral: Code(s): M17.0 - Bilateral primary osteoarthritis of knee Plan: Lose the weight keep active (4) Obesity (BMI 30-39.9): Code(s): E66.9 - Obesity, unspecified Plan: Diet and exercise (5) Toe pain, left: Code(s): M79.675 - Pain in left toe(s) (6) Hypertriglyceridemia: Code(s): E78.1 - Pure hyperglyceridemia Orders: Orders US renal BI Today R31.9 - Hematuria, unspecified Comprehensive Met. Panel Today E78.1 - Pure hyperglyceridemia Thyroid Stimulating Hormone Today E78.1 - Pure hyperglyceridemia Vitamin B12 and Folate Today E78.1 - Pure hyperglyceridemia Lipid Panel Today E78.00 - Pure hypercholesterolemia, unspecified, E78.1 - Pure hyperglyceridemia Complete Blood Count Auto Diff Today E78.1 - Pure hyperglyceridemia Free T4 (Free Thyroxine) Today E78.1 - Pure hyperglyceridemia UA CC w/rflx Micro + Cult Today E78.1 - Pure hyperglyceridemia, R30.0 - Dysuria Referrals Podiatry Referral M79.675 - Pain in left toe(s) Coding Level of Care Code Est Pt Prev Care 40-64y(58465) Diagnoses Annual physical exam Z00.00 Hematuria R31.9 Osteoarthritis of knees, bilateral M17.0 Obesity (BMI 30-39.9) E66.9 Toe pain, left M79.675 Hypertriglyceridemia E78.1
== END 2024-01-22 13:22 | disposition home or self-care (01) ==
PROVIDERS: Visit Provider Internal Medicine
DX: Z00.00 Encounter for general adult medical examination without abnormal findings (principal); M17.0 Bilateral primary osteoarthritis of knee; R31.9 Hematuria, unspecified; E78.1 Pure hyperglyceridemia; M79.675 Pain in left toe(s)
CPT/HCPCS: 99396

== ENCOUNTER 2024-01-28 15:14 | Outpatient (REF) | payer OTHER, SELFPAY ==
--- NOTE | ~2024-01-28 | US_ITS ---
EXAMINATION: US RETROPERITONEAL LIMITED (RENAL ONLY) CLINICAL INFORMATION: Hematuria, unspecified. COMPARISON: CT abdomen and pelvis 08/17/2017. TECHNIQUE: Real-time imaging of the kidneys. FINDINGS: RIGHT KIDNEY: 11.4 x 7.2 x 4.9 cm (SAG x AP x TRV). The kidney is normal in size, contour, and echogenicity. Renal cortical thickness is normal. No calculi or focal parenchymal lesions. No hydronephrosis. LEFT KIDNEY: 12.6 x 6.6 x 5.4 cm (SAG x AP x TRV). The kidney is normal in size, contour, and echogenicity. Renal cortical thickness is normal. No calculi or focal parenchymal lesions. No hydronephrosis. US/US renal BI IMPRESSION: Normal renal ultrasound.
== END 2024-01-28 15:15 | disposition home or self-care (01) ==
LOC: HO.US 15:14
PROVIDERS: PCP Internal Medicine; Visit Provider Internal Medicine
DX: R31.9 Hematuria, unspecified (principal)
CPT/HCPCS: 76775

== ENCOUNTER 2024-03-17 08:48 | Outpatient (AMB) | payer OTHER, SELFPAY ==
[2024-03-17 08:49] VITALS: BP 138/92; PULSE 84; O2SAT 98; BMI 33.4
--- NOTE | 2024-03-17 08:49 | A.OFFPC_ITS ---
Vital Signs 03/17/24 08:49 03/17/24 08:59 Height 5 ft 7 in Weight 213 lb BMI 33.4 BP 138/92 H 132/82 Blood Pressure Location Lt brachial Lt brachial Position Sitting Sitting Pulse 84 Pulse Source Pulse Oximeter Pulse Oximetry (%) 98 Oxygen Delivery Method Room Air Intake Visit Reasons: [facility] 04/22/24 cataract Allergies No Known Allergies [No Known Allergies*] Allergy (Verified 03/17/24 08:49) Medication List - Last Reconciled 03/17/24 by Renita Harrell MD [KNEE brace R and L As directed] naproxen 500 mg PO Q12H Tobacco use date assessed: 03/17/24 Dental Screening Dental Screen Date: 03/17/24 Did you have a dental visit in the last 12 months?: Yes Did you have a dental problem in the last 6 months where you did not have access to dental care?: No Was dental information given to patient?: Patient has dentist HPI [facility] 04/22/24 cataract HPI Details 53-year-old obese female with osteoarthr itis in hypertriglyceridemia coming in for preoperative evaluation for cataract surgery in 04/22/2024. Patient was last seen in January 2024. [facility] Medical History (Updated 03/17/24 @ 08:56 by Renita Harrell MD) Well woman exam with routine gynecological exam Thyroid enlargement Tinnitus of both ears Vision impairment Temporomandibular joint dysfunction Surgical History History of tubal ligation Family History Father No problems noted. Mother No problems noted. 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 1. Little interest or pleasure in doing things: not at all 2. Feeling down, depressed, or hopeless: not at all 3. Trouble falling or staying asleep, or sleeping too much: not at all 4. Feeling tired or having little energy: not at all 5. Poor appetite or overeating: not at all 6. Feeling bad about yourself - or that you are a failure or have let yourself or your family down: not at all 7. Trouble concentrating on things, such as reading the newspaper or watching television: not at all 8. Moving or speaking so slowly that other people could have noticed. Or the opposite - being so fidgety or restless that you have been moving around a lot more than usual: not at all 9. Thoughts that you would be better off or of hurting yourself in some way: not at all Total score: 0 Depression Screening Interpretation: Negative Depression Screening Done: Yes Source: Developed by Drs. Ryan Leone, Betty Smyth, Tru Fishman and colleagues, with an educational yaneli from [employer]. Thrive Questionnaire Date Thrive assessed: 03/17/24 I am a: Patient What is your living situation today?: I have a steady place to live Within the past 12 months, did the food you bought not last and you didn't have the money to get more?: Never true Within the past 12 months, did you worry whether your food would run out before you got money to buy more?: Never true Do you have trouble paying for medicines?: No Do you have trouble getting transportation to medical appointments?: No Do you have trouble paying your heating and electricity bill?: No Do you have trouble taking care of your child, family member or friend?: No Do you have trouble with day-to-day activities such as bathing, preparing meals, shopping, managing finances, etc.?: No Are you currently unemployed and looking for a job?: No Are you interested in more education?: No Please select the resources that you would like help with: None Currently or been in a relationship where the following occur: no concerns reported THRIVE Score: 0 AUDIT C Alcohol Use Questionnaire (AUDIT-C) 1. How often do you have a drink containing alcohol?: Never 2. How many drinks containing alcohol do you have on a typical day when you are drinking?: 1 or 2 3. How often do you have six or more drinks on one occasion?: Never Total Score: 0 JIMMIE-7 AMB Questionnaire JIMMIE-7 Date JIMMIE - 7 assessed: 03/17/24 Feeling nervous, anxious, or on edge: 0 = Not at all Not being able to stop or control worryin = Not at all Worrying too much about different things: 0 = Not at all Trouble relaxin = Not at all Being so restless that it is hard to sit still: 0 = Not at all Becoming easily annoyed or irritable: 0 = Not at all Feeling afraid as if something awful might happen: 0 = Not at all Total JIMMIE-7 score (0-4 normal; 5-9 mild; 10-14 moderate; 15-21 severe): 0 Source: Developed by Drs. Ryan Leone, Betty Smyth, Tru Fishman and colleagues, with an educational yaneli from [employer]. Review of Systems Const Denies poor appetite and Denies weakness Eyes Denies no additional complaints ENT Reports Normal hearing present, Denies dizziness, Denies nasal congestion, Denies tinnitus and Denies sore throat Card Denies chest pain, Denies syncope, Denies rapid heart rate and Denies dyspnea Resp Denies cough and Denies dyspnea GI Denies change in stool character, Reports constipation, Denies diarrhea, Denies nausea and Denies vomiting Denies urinary frequency, Denies difficulty voiding and Denies dysuria Neuro Reports Normal hearing present, Denies confusion, Denies dizziness, Denies syncope and Denies weakness Psych Denies confusion Physical exam (Primary Care) Vital Signs: Oxygen Delivery Method Room Air 03/17/24 08:49 BMI result Body Mass Index 33.4 Tobacco/Smoking Status: Tobacco use Status Tobacco use date assessed 01/22/24 01/22/24 12:50 Patient Tobacco Use Status Never used Tobacco 01/22/24 13:06 e-Cigarette/Vaping Use Never Used 01/22/24 13:06 Depression Screening Interpretation: Negative Thrive Assessment: Date of Thrive Assessment Date Thrive assessed 01/22/24 01/22/24 12:50 Currently or been in a relationship where the following occur: no concerns reported Const General: No confusion Orientation/consciousness: No confusion Neuro General: No confusion Cranial nerves: Yes Normal hearing present Assessment and Plan Assessment & Plan (1) Preop exam for internal medicine: Code(s): Z01.818 - Encounter for other preprocedural examination Plan: Patient is 53 years old with no known cardiac medical problem. Patient is at low risk for any cardiac complication. And with the low risk procedure No further workup needed at this time and may proceed with the contemplated procedure. Thank you very much for letting me participate in the care of this patient. (2) Obesity (BMI 30-39.9): Code(s): E66.9 - Obesity, unspecified Plan: Diet and exercise Orders: Orders ECG 12 lead EKG Today Z01.818 - Encounter for other preprocedural examination Coding Level of Care Code Est Pt Level 4 (06793) Diagnoses Preop exam for internal medicine Z01.818 Obesity (BMI 30-39.9) E66.9
[2024-03-17 08:59] VITALS: BP 132/82
== END 2024-03-17 09:11 | disposition home or self-care (01) ==
PROVIDERS: PCP Internal Medicine; Visit Provider Internal Medicine
DX: E66.9 Obesity, unspecified (principal); Z01.818 Encounter for other preprocedural examination; Z68.33 Body mass index [BMI] 33.0-33.9, adult
CPT/HCPCS: 99214

== ENCOUNTER 2024-03-17 09:18 | Outpatient (REF) | payer OTHER, SELFPAY ==
--- NOTE | 2024-03-17 09:22 | ECG_ITS ---
Test Reason : PREOP Blood Pressure : / mmHG Vent. Rate : 067 BPM Atrial Rate : 067 BPM P-R Int : 152 ms QRS Dur : 086 ms QT Int : 428 ms P-R-T Axes : 058 001 042 degrees QTc Int : 452 ms Normal sinus rhythm Normal ECG When compared with ECG of 28-MAR-2018 09:38, No significant change was found Referred By: Renita Harrell Electronically Signed By:ADRIANO GRECO MD
[2024-03-17 09:36] LABS: MANUAL DIFF FLAG NO
[2024-03-17 10:02] LABS: Urine Cytology See Pathology rpt
[2024-03-17 10:12] LABS: Basophils Absolute Auto 0.1 X10*3/uL (0.0-0.2); Basophils Percent Auto 1.2 % (0-2); Eosinophils Absolute Auto 0.2 X10*3/uL (0.0-0.4); Eosinophils Percent Auto 2.8 % (0-4); Hematocrit 39.8 % (37.0-47.0); Hemoglobin 13.7 g/dl (12.0-16.0); Imm Gran Abs Auto 0.02 X10*3/uL (0.00-0.03); Imm Gran Pct Auto 0.4 % (0.0-0.4); Lymphocytes Absolute Auto 2.1 X10*3/uL (1.2-4.9); Lymphocytes Percent Auto 37.9 % (20-40); Mean Corpuscular HGB Conc 34.4 g/dl (31.0-35.0); Mean Corpuscular Hemoglobin 29.1 pg (27.0-33.0); Mean Corpuscular Volume 84.5 fL (80.0-98.0); Mean Platelet Volume 10.4 fL (9.4-12.3); Monocytes Absolute Auto 0.5 X10*3/uL (0.1-1.2); Monocytes Percent Auto 9.6 % (2-11); Neutrophils Absolute Auto 2.7 x10*3/uL (2.0-8.3); Neutrophils Percent Auto 48.1 % (45-73); Platelet Count 251 X10*3/uL (160-400); Red Blood Count 4.71 X10*6/uL (4.20-5.50); Red Cell Distribution Width 13.5 % (11.0-16.0); White Blood Count 5.6 X10*3/uL (4.8-10.8)
[2024-03-17 10:29] LABS: Appearance Urine Clear; Color Urine Yellow; Glucose Urine UA Negative (Negative); Leukocyte Esterase Urine Negative (Negative); Nitrite Urine Negative (Negative); Specific Gravity - Urine 1.025 (1.005-1.025); Urine Blood Negative (Negative); Urine Ketones Negative (Negative); Urine Protein Negative (Neg-Trace)
[2024-03-17 11:31] LABS: Alanine Aminotransferase 28 U/L (0-31); Albumin Level 4.4 g/dL (3.5-5.0); Alkaline Phosphatase 80 U/L (39-117); Anion Gap 12 (12-20); Aspartate Amino Transferase 22 U/L (5-31); Bilirubin Total 0.5 mg/dL (0.0-1.0); Blood Urea Nitrogen 13 mg/dL (9-16); Carbon Dioxide 25 mmol/L (22-29); Chloride 108 mmol/L (96-108); Cholesterol 187 mg/dL (<200); Estimated Glomerular Filt Rate > 60; Glucose Random 84 mg/dL (60-115); HDL Cholesterol 48 mg/dL (>40); LDL Cholesterol Calculated 116 mg/dL (<100); Potassium 4.1 mmol/L (3.3-5.1); Sodium 141 mmol/L (135-145); Total Protein 7.7 g/dL (6.5-8.0); Triglycerides 118 mg/dL (<150)
[2024-03-17 11:33] LABS: Free T4 (Free Thyroxine) 0.84 ng/dL (0.71-1.85)
[2024-03-17 11:42] LABS: Folate 11.8 ng/mL (> or = 4.0); Vitamin B12 352 pg/mL (200-900)
== END 2024-03-17 09:19 | disposition home or self-care (01) ==
LOC: HO.LAB 09:18
PROVIDERS: PCP Internal Medicine; Visit Provider Internal Medicine
DX: Z01.818 Encounter for other preprocedural examination (principal); R31.9 Hematuria, unspecified; E78.1 Pure hyperglyceridemia; R30.0 Dysuria; E78.00 Pure hypercholesterolemia, unspecified
CPT/HCPCS: 36415; 80053; 80061; 81003; 82607; 82746; 84439; 84443; 85025; 88112; 93005

== ENCOUNTER → 2024-03-17 09:22 | Outpatient (BNV) | payer OTHER, SELFPAY | PROVIDERS: PCP Internal Medicine; Visit Provider Internal Medicine Cardiovascular Disease | DX: Z01.818 Encounter for other preprocedural examination (principal) | CPT/HCPCS: 93010 ==

== ENCOUNTER 2025-01-26 13:38 | Outpatient (AMB) | payer OTHER, SELFPAY ==
[2025-01-26 13:40] VITALS: BP 130/80; PULSE 77; TEMP 36.2; O2SAT 99; BMI 36.4
--- NOTE | 2025-01-26 13:40 | A.OFFPC_ITS ---
Vital Signs 01/26/25 13:40 Height 5 ft 4 in Weight 212 lb 4 oz BMI 36.4 BP 130/80 Blood Pressure Location Lt brachial Position Sitting Pulse 77 Pulse Source Pulse Oximeter Temp 97.1 F Temp Source Temporal Artery Scan Pulse Oximetry (%) 99 Oxygen Delivery Method Room Air Intake Visit Reasons: annual exam Intake Note: Patient is here today for a physical. [employer] Supervisor Required: No Accompanied by: Spouse Allergies No Known Allergies [No Known Allergies*] Allergy (Verified 01/26/25 13:54) Medication List - Last Reconciled 01/26/25 by Renita Harrell MD doxycycline hyclate 50 mg PO DAILY PRN [KNEE brace R and L As directed] naproxen 500 mg PO Q12H Tobacco use date assessed: 01/26/25 Dental Screening Dental Screen Date: 03/17/24 [facility] Medical History (Updated 01/26/25 @ 14:28 by Renita Harrell MD) Well woman exam with routine gynecological exam Thyroid enlargement Tinnitus of both ears Vision impairment Temporomandibular joint dysfunction Surgical History History of tubal ligation Family History Father No problems noted. Mother No problems noted. 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 1. Little interest or pleasure in doing things: not at all 2. Feeling down, depressed, or hopeless: not at all 3. Trouble falling or staying asleep, or sleeping too much: not at all 4. Feeling tired or having little energy: not at all 5. Poor appetite or overeating: not at all 6. Feeling bad about yourself - or that you are a failure or have let yourself or your family down: not at all 7. Trouble concentrating on things, such as reading the newspaper or watching television: not at all 8. Moving or speaking so slowly that other people could have noticed. Or the opposite - being so fidgety or restless that you have been moving around a lot more than usual: not at all 9. Thoughts that you would be better off or of hurting yourself in some way: not at all Total score: 0 Depression Screening Interpretation: Negative Depression Screening Done: Yes 81455 - PHQ-9 Billing: Yes Source: Developed by Drs. Ryan Leone, Betty Smyth, Tru Fishman and colleagues, with an educational yaneli from [employer]. Thrive Questionnaire Date Thrive assessed: 01/26/25 I am a: Patient What is your living situation today?: I have a steady place to live Within the past 12 months, did the food you bought not last and you didn't have the money to get more?: Often true Within the past 12 months, did you worry whether your food would run out before you got money to buy more?: Sometimes True Do you have trouble paying for medicines?: No Do you have trouble getting transportation to medical appointments?: Yes Do you have trouble paying your heating and electricity bill?: Yes Do you have trouble taking care of your child, family member or friend?: No Do you have trouble with day-to-day activities such as bathing, preparing meals, shopping, managing finances, etc.?: No Are you currently unemployed and looking for a job?: No Are you interested in more education?: No Please select the resources that you would like help with: None Currently or been in a relationship where the following occur: I choose not to answer THRIVE Score: 4 AUDIT C Alcohol Use Questionnaire (AUDIT-C) 1. How often do you have a drink containing alcohol?: Never 3. How often do you have six or more drinks on one occasion?: Never Total Score: 0 JIMMIE-7 AMB Questionnaire JIMMIE-7 Date JIMMIE - 7 assessed: 01/26/25 Feeling nervous, anxious, or on edge: 0 = Not at all Not being able to stop or control worryin = Not at all Worrying too much about different things: 0 = Not at all Trouble relaxin = Not at all Being so restless that it is hard to sit still: 0 = Not at all Becoming easily annoyed or irritable: 0 = Not at all Feeling afraid as if something awful might happen: 0 = Not at all Total JIMMIE-7 score (0-4 normal; 5-9 mild; 10-14 moderate; 15-21 severe): 0 Source: Developed by Drs. Ryan Leone, Betty Smyth, Tru Fishman and colleagues, with an educational yaneli from [employer]. JIMMIE-7 Assessment Billing JIMMIE-7 Assessment Tool: JIMMIE-7 Assessment 95569 Review of Systems Const Denies poor appetite and Denies weakness Eyes Denies no additional complaints ENT Reports Normal hearing present, Denies dizziness, Denies nasal congestion, Denies tinnitus and Denies sore throat Card Denies chest pain, Denies syncope, Denies rapid heart rate and Denies dyspnea Resp Denies cough and Denies dyspnea GI Denies change in stool character, Reports constipation, Denies diarrhea, Denies nausea and Denies vomiting Denies urinary frequency, Denies difficulty voiding and Denies dysuria Neuro Reports Normal hearing present, Denies confusion, Denies dizziness, Denies syncope and Denies weakness Psych Denies confusion Physical exam (Primary Care) Vital Signs: Last Vital Signs Temp 97.1 F 01/26/25 13:40 Pulse 77 01/26/25 13:40 BP 130/80 01/26/25 13:40 Pulse Ox 99 01/26/25 13:40 Oxygen Delivery Method Room Air 01/26/25 13:40 BMI result Body Mass Index 36.4 Tobacco/Smoking Status: Tobacco use Status Tobacco use date assessed 01/26/25 01/26/25 13:56 Patient Tobacco Use Status Never used Tobacco 01/26/25 13:41 Tobacco use type Cigarette 01/26/25 13:41 e-Cigarette/Vaping Use Never Used 01/26/25 13:41 PHQ-9: PHQ-9 Score PHQ-9: Total score 0 01/26/25 14:13 Depression Screening Interpretation: Negative Thrive Assessment: Date of Thrive Assessment Date Thrive assessed 01/26/25 01/26/25 13:41 Currently or been in a relationship where the following occur: I choose not to answer Const General: No confusion Orientation/consciousness: No confusion HENMT Head: Yes normocephalic Ears: external ears normal and TM's normal bilaterally Face and sinus: Yes normal facial exam Mouth: moist mucous membranes Throat: Yes tonsils normal Eyes Conjunctivae: conjunctivae normal Pupils: Equal, round and reactive pupils present and Pupil accommodation reflex normal Direct Ophthalmoscopy: normal light reflex Neck Neck: No lymphadenopathy Thyroid: Thyroid normal Chest Chest palpation & inspection: normal inspection of the chest Resp Effort & Inspection: normal respiratory effort and no audible wheezes Auscultation: clear to auscultation bilaterally, no crackles, no wheezes and lung sounds not diminished Cardio Rate: regular rate Rhythm: regular rhythm Peripheral pulses: radial pulses present and dorsalis pedis present GI Palpation (GI): no masses Auscultation: normal bowel sounds and normoactive bowel sounds Rectal Exam - Female: deferred Skin General skin exam: no rashes or lesions noted Rashes: no rashes Neuro General: No confusion Cranial nerves: Yes Equal, round and reactive pupils present and Yes Normal hearing present Cognition (Neuro): normal cognition Gait exam (Neuro): Normal gait present Motor exam (neuro): 5/5 motor strength present throughout Deep tendon reflexes (DTR's): Right brachioradialis reflex intensity grade: 2+, Left brachioradialis reflex intensity grade: 2+, Right patellar reflex intensity grade: 2+ and Left patellar reflex intensity grade: 2+ Extrem General: No edema Office Procedures Flu Questionnaire Does the patient have a severe egg allergy?: No Does the patient have severe life threatening allergies?: No Does the patient have a fever or illness today?: No Has the patient ever had Guillain-Hamlet Syndrome?: No Has the patient ever had any past reaction to a flu shot?: No Immunizations Fluarix Triv [id number] (PF) 45 mcg (15 mcg x 3)/0.5 mL IM syringe Performing Provider: Renita Harrell MD [facility] [place] [facility] Documented (not given) by: JUAN Kat on 01/26/25 13:57 Reason Not Given: Patient Refused Coding Level of Care Code Est Pt Prev Care 40-64y(63091) Diagnoses Annual physical exam Z00.00 Obesity (BMI 30-39.9) E66.9 Breast cancer screening by mammogram Z12.31 Hypersomnia G47.10 Generalized anxiety disorder F41.1 Additional Codes JIMMIE-7 Assessment Billing - JIMMIE-7 Assessment Tool: JIMMIE-7 Assessment 29035 ([id number]) PHQ-9 - 55169 - PHQ-9 Billing: Yes ([id number]) Assessment & Plan Assessment & Plan (1) Annual physical exam: Code(s): Z00.00 - Encounter for general adult medical examination without abnormal findings Category: Medical Plan: Patient is advised to eat healthy, keep well hydrated, keep active and have adequate sleep. (2) Obesity (BMI 30-39.9): Code(s): E66.9 - Obesity, unspecified Category: Medical Plan: Diet and exercise (3) Breast cancer screening by mammogram: Code(s): Z12.31 - Encounter for screening mammogram for malignant neoplasm of breast Category: Medical Plan: Reminded about mammogram (4) Hypersomnia: Code(s): G47.10 - Hypersomnia, unspecified Category: Medical (5) Generalized anxiety disorder: Code(s): F41.1 - Generalized anxiety disorder Category: Medical Plan History of Present Illness The patient is a 54-year-old female presenting for an annual physical exam. She has a chronic history of obesity, hypercholesterolemia, osteoarthritis, glaucoma suspect, and generalized anxiety disorder. Past assessments have revealed stable blood counts and metabolic panels, though her LDL was slightly elevated at 116 mg/dL. The patient is behind on her mammogram screening and adheres to a previous colonoscopy schedule with the last test performed in 2019. She reports being frequently tired, working extensive hours, which warrants a consideration of sleep apnea?a diagnosis hypothesized based on symptoms of tiredness, snoring, and occasional shortness of breath. While avoiding smoking and recreational drug use, her alcohol consumption is low, particularly around annual celebrations. She completes a limited physical activity regimen mainly involving occupational demands including climbing stairs, faced with infrequent heartburn issues. She acknowledges anxiety and depression suggestive of an interest in pursuing emotional support via a comfort animal, contemplates upon past consultations with more outdated practitioners, and seeks a renewed perspective on her mental and physical well-being. Health Maintenance - Mammogram screening is overdue. - Colonoscopy last performed in 2019, next due per standard 10-year interval. - Bloodwork showing LDL of 116 mg/dL. - Patient advised to maintain a healthy diet and regular exercise regime. - Importance of a sleep study discussed. - Emphasized the need for continued management of weight and cholesterol levels. - Counseling on the risks of sleep apnea and potential impacts on cardiovascular health. Social History - Works extensive hours, often leading to fatigue. - Lives in a long-term residence with nearly 30 years of dwelling history. - Alcohol consumption is limited to New 's celebrations. - Denies smoking or recreational drug use. - Symptoms of fatigue potentially related to occupational demands as opposed to leisure activity. Review of Systems - General: Denies fever, dizziness, nausea, and coughing. - Cardiovascular: Denies chest pain, heaviness, or discomfort. - Respiratory: Reports no difficulty breathing nor issues with snoring. - Gastrointestinal: Experiences infrequent heartburn. - Genitourinary: Wakes once per night to urinate. Reports normal bowel movements. - Neurological: Denies passing out or feeling dizzy. - Psychiatric: Acknowledges anxiety and depression. Physical Exam General: Cooperative, healthy appearing, comfortable, no acute distress and well developed Orientation: Patient oriented x3 Limitations: No limitations Head: Normal to inspection Ears: Hearing grossly normal bilaterally Nose: Normal external nose present Face and sinus: Normal facial exam Eyes: Appearance normal, both eyes and all related structures Neck: Normal visual inspection and Yes full ROM Respiratory: Normal respiratory effort and able to speak in complete sentences. Clear to auscultation bilaterally Cardiovascular: Regular rate and rhythm. Normal S1 and S2 GI: Normal to inspection. Soft to palpation and nontender Skin: No rashes or lesions noted Neuro: Patient oriented x3 Extremities: Normal to inspection Results - Labs: LDL at 116 mg/dL from prior blood work was last discussed. - No new diagnostic tests or imaging discussed. Plan The plan includes scheduling a sleep study to assess suspected sleep apnea. Continued focus on weight management and lipid control through diet and exercise is recommended. Mammogram referral for compliance with breast cancer screening guidelines. Ongoing monitoring of ocular pressure to evaluate glaucoma presence. Considering the patient's anxiety disorder, discuss the benefit of acquiring a comfort animal for emotional support. Advise maintaining regular follow-ups to reassess all aspects of health maintenance and chronic condition management. Patient was informed and verbally consented to the use of an ambient scribe for clinic note documentation during this visit. Discussion Notes I discussed the potential diagnosis of sleep apnea with the patient and its need for evaluation due to her reported symptoms. I highlighted the importance of maintaining current therapies for hypercholesterolemia and obesity, including specific dietary and exercise recommendations. Risk and benefits of a weight management plan were explained. The patient agreed to pursue a mammogram and acknowledged the overdue status. We explored the support animal option for manag ing her anxiety disorder and briefed on the rationale. I counseled about upcoming test logistics and consent processes for proposed health strategies, emphasizing return protocols and routine monitoring for resolution. Patient Instructions - Schedule and complete a sleep study as advised. - Pursue the overdue mammogram screening. - Continue with low-cholesterol diet and regular physical activity. - Monitor ocular health and follow any recommended ophthalmology appointments. - Consult support services for management options regarding anxiety disorders. - Follow up on blood work and possible further diagnostics pending study results. - Ensure hydration, sufficient rest, and self-care given extensive work hours. - Return for follow-up evaluation as prescribed or earlier with new or worsening symptoms. Orders: Orders Comprehensive Met. Panel Today G47.10 - Hypersomnia, unspecified Vitamin B12 and Folate Today G47.10 - Hypersomnia, unspecified Hemoglobin A1c Today G47.10 - Hypersomnia, unspecified Influenza [id number] Immunization Today Z23 - Encounter for immunization RT home sleep study Today G47.10 - Hypersomnia, unspecified Complete Blood Count Auto Diff Today G47.10 - Hypersomnia, unspecified Free T4 (Free Thyroxine) Today G47.10 - Hypersomnia, unspecified Thyroid Stimulating Hormone Today G47.10 - Hypersomnia, unspecified Lipid Panel Today E78.00 - Pure hypercholesterolemia, unspecified, G47.10 - Hypersomnia, unspecified Vitamin D 25-OH Total Today G47.10 - Hypersomnia, unspecified UA CC w/rflx Micro + Cult Today G47.10 - Hypersomnia, unspecified, R30.0 - Dysuria Referrals Psychiatry Referral F41.1 - Generalized anxiety disorder
== END 2025-01-26 14:45 | disposition home or self-care (01) ==
LOC: HO.HMCH 13:39
PROVIDERS: PCP Internal Medicine; Visit Provider Internal Medicine
DX: Z00.00 Encounter for general adult medical examination without abnormal findings (principal); E66.9 Obesity, unspecified; Z68.36 Body mass index [BMI] 36.0-36.9, adult; Z12.31 Encounter for screening mammogram for malignant neoplasm of breast; G47.10 Hypersomnia, unspecified; F41.1 Generalized anxiety disorder

== ENCOUNTER → 2025-01-26 13:38 | Outpatient (BNVA) | payer OTHER, SELFPAY | PROVIDERS: PCP Internal Medicine; Visit Provider Internal Medicine | DX: Z00.00 Encounter for general adult medical examination without abnormal findings (principal); E66.9 Obesity, unspecified; Z68.36 Body mass index [BMI] 36.0-36.9, adult; G47.10 Hypersomnia, unspecified; F41.1 Generalized anxiety disorder; Z28.21 Immunization not carried out because of patient refusal | CPT/HCPCS: 96127 ==

== ENCOUNTER → 2025-03-23 14:51 | Outpatient (REF) | payer OTHER, SELFPAY | LOC: HO.SL 14:51 | PROVIDERS: PCP Internal Medicine; Visit Provider Internal Medicine | DX: G47.10 Hypersomnia, unspecified (principal) | CPT/HCPCS: 95806 ==

== ENCOUNTER → 2025-03-23 15:00 | Outpatient (BNV) | payer OTHER, SELFPAY | PROVIDERS: PCP Internal Medicine; Visit Provider Internal Medicine | DX: G47.33 Obstructive sleep apnea (adult) (pediatric) (principal) | CPT/HCPCS: 95806 ==

== ENCOUNTER 2025-04-30 13:49 | Outpatient (AMB) | payer OTHER, SELFPAY ==
[2025-04-30 13:52] VITALS: BP 124/72; PULSE 79; O2SAT 97; BMI 37.4
--- NOTE | 2025-04-30 13:52 | MHC.PC.OV ---
Vital Signs 04/30/25 13:52 Height 5 ft 4 in Weight 218 lb BMI 37.4 BP 124/72 Blood Pressure Location Lt brachial Position Sitting Pulse 79 Pulse Source Pulse Oximeter Pulse Oximetry (%) 97 Oxygen Delivery Method Room Air Intake Visit Reasons: JIMMIE, Allergies No Known Allergies (No Known Allergies*) Allergy (Verified 04/30/25 13:53) Medication List - Last Reconciled 04/30/25 by Renita Harrell MD [KNEE brace R and L As directed] Tobacco use date assessed: 01/26/25 Dental Screening Dental Screen Date: 04/30/25 Did you have a dental visit in the last 12 months?: Yes Did you have a dental problem in the last 6 months where you did not have access to dental care?: No Was dental information given to patient?: Patient has dentist [facility] Medical History (Updated 04/30/25 @ 14:10 by Renita Harrell MD) Colon cancer screening Well woman exam with routine gynecological exam Thyroid enlargement Tinnitus of both ears Vision impairment Temporomandibular joint dysfunction Surgical History History of tubal ligation Family History Father No problems noted. Mother No problems noted. 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 1. Little interest or pleasure in doing things: not at all 2. Feeling down, depressed, or hopeless: not at all 3. Trouble falling or staying asleep, or sleeping too much: not at all 4. Feeling tired or having little energy: not at all 5. Poor appetite or overeating: not at all 6. Feeling bad about yourself - or that you are a failure or have let yourself or your family down: not at all 7. Trouble concentrating on things, such as reading the newspaper or watching television: not at all 8. Moving or speaking so slowly that other people could have noticed. Or the opposite - being so fidgety or restless that you have been moving around a lot more than usual: not at all 9. Thoughts that you would be better off or of hurting yourself in some way: not at all Total score: 0 Depression Screening Interpretation: Negative Depression Screening Done: Yes 56519 - PHQ-9 Billing: Yes Source: Developed by Drs. Ryan Leone, Tru Dumont and colleagues, with an educational yaneli from [employer]. Thrive Questionnaire Date Thrive assessed: 01/26/25 I am a: Patient What is your living situation today?: I have a steady place to live Within the past 12 months, did the food you bought not last and you didn't have the money to get more?: Often true Within the past 12 months, did you worry whether your food would run out before you got money to buy more?: Sometimes True Do you have trouble paying for medicines?: No Do you have trouble getting transportation to medical appointments?: Yes Do you have trouble paying your heating and electricity bill?: Yes Do you have trouble taking care of your child, family member or friend?: No Do you have trouble with day-to-day activities such as bathing, preparing meals, shopping, managing finances, etc.?: No Are you currently unemployed and looking for a job?: No Are you interested in more education?: No Please select the resources that you would like help with: None Currently or been in a relationship where the following occur: I choose not to answer THRIVE Score: 4 AUDIT C Alcohol Use Questionnaire (AUDIT-C) 1. How often do you have a drink containing alcohol?: Never 3. How often do you have six or more drinks on one occasion?: Never Total Score: 0 JIMMIE-7 AMB Questionnaire JIMMIE-7 Date JIMMIE - 7 assessed: 01/26/25 Source: Developed by Drs. Ryan Leone, Tru Dumont and colleagues, with an educational yaneli from [employer]. Physical exam (Primary Care) Vital Signs: Last Vital Signs Pulse 79 04/30/25 13:52 BP 124/72 04/30/25 13:52 Pulse Ox 97 04/30/25 13:52 Oxygen Delivery Method Room Air 04/30/25 13:52 BMI result Body Mass Index 37.4 Tobacco/Smoking Status: Tobacco use Status Tobacco use date assessed 01/26/25 04/30/25 13:56 Patient Tobacco Use Status Never used Tobacco 04/30/25 13:56 Tobacco use type Cigarette 04/30/25 13:56 e-Cigarette/Vaping Use Never Used 04/30/25 13:56 PHQ-9: PHQ-9 Score PHQ-9: Total score 0 04/30/25 13:56 Depression Screening Interpretation: Negative Thrive Assessment: Date of Thrive Assessment Date Thrive assessed 01/26/25 04/30/25 13:56 Currently or been in a relationship where the following occur: I choose not to answer Const General: alert; No acute distress Eyes Conjunctivae: conjunctivae normal Resp Auscultation: clear to auscultation bilaterally Cardio Rate: regular rate Rhythm: regular rhythm GI Inspection: Yes normal to inspection Extrem General: Yes normal to inspection and No edema Coding Level of Care Code Est Pt Level 4 (39900) Complex EM visit Add On G2211 Diagnoses Breast cancer screening by mammogram Z. Obesity (BMI 30-39.9) E66.9 Generalized anxiety disorder F41.1 Additional Codes PHQ-9 - 35744 - PHQ-9 Billing: Yes ([id number]) Assessment & Plan Assessment & Plan (1) Breast cancer screening by mammogram: Code(s): Z12.31 - Encounter for screening mammogram for malignant neoplasm of breast Category: Medical Plan: Patient is reminded about mammogram (2) Obesity (BMI 30-39.9): Code(s): E66.9 - Obesity, unspecified Category: Medical Plan: Diet and exercise (3) Generalized anxiety disorder: Code(s): F41.1 - Generalized anxiety disorder Category: Medical Plan: Stable Plan History of Present Illness The patient is a 54-year-old female presenting for a follow-up on weight management and preventative care. She has experienced a 6-pound weight gain and has a history of obesity. Her medical history includes left breast calcifications, carpal tunnel syndrome, hypercholesterolemia, and generalized anxiety disorder. The patient underwent a sleep study on March 23, 2025, which revealed obstructive events in the supine position. It was recommended that she avoid sleeping in this position to mitigate these events. Her last blood work was conducted last year, and a kidney ultrasound performed on January 27 was normal. She was reminded of the importance of regular screenings, including colonoscopy and mammogram. Health Maintenance - Colonoscopy reminder - Mammogram reminder - Diet and exercise advice Social History Review of Systems Physical Exam Results - Sleep study on March 23, 2025: Obstructive events noted in supine position - Kidney ultrasound on January 27: Normal findings Plan The patient is advised to manage her weight through diet and exercise to address obesity and prevent further weight gain. She should continue to monitor her cholesterol levels and manage her anxiety disorder with appropriate interventions. For obstructive sleep apnea, it is recommended to avoid sleeping in the supine position as per the sleep study findings. Regular screenings such as colonoscopy and mammogram should be scheduled as reminders were provided during the visit. Patient was informed and verbally consented to the use of an ambient scribe for clinic note documentation during this visit. Discussion Notes Patient Instructions - Follow a healthy diet and exercise regularly to manage weight. - Avoid sleeping on your back to reduce sleep apnea symptoms. - Schedule your colonoscopy and mammogram as soon as possible.
== END 2025-04-30 14:16 | disposition home or self-care (01) ==
LOC: HO.HMCH 13:50
PROVIDERS: PCP Internal Medicine; Visit Provider Internal Medicine
DX: F41.1 Generalized anxiety disorder (principal); Z12.31 Encounter for screening mammogram for malignant neoplasm of breast; E66.9 Obesity, unspecified; Z68.37 Body mass index [BMI] 37.0-37.9, adult

== ENCOUNTER → 2025-04-30 13:49 | Outpatient (BNVA) | payer OTHER, SELFPAY | PROVIDERS: PCP Internal Medicine; Visit Provider Internal Medicine | DX: F41.1 Generalized anxiety disorder (principal); E66.9 Obesity, unspecified; Z68.37 Body mass index [BMI] 37.0-37.9, adult | CPT/HCPCS: 96127 ==

== ENCOUNTER 2025-05-02 08:46 | Outpatient (REF) | payer OTHER, SELFPAY ==
[2025-05-02 08:58] LABS: MANUAL DIFF FLAG NO
[2025-05-02 09:14] LABS: Basophils Absolute Auto 0.1 X10*3/uL (0.0-0.2); Basophils Percent Auto 1.1 % (0-2); Eosinophils Absolute Auto 0.2 X10*3/uL (0.0-0.4); Eosinophils Percent Auto 3.2 % (0-4); Hematocrit 40.4 % (37.0-47.0); Hemoglobin 13.6 g/dl (12.0-16.0); Imm Gran Abs Auto 0.02 X10*3/uL (0.00-0.03); Imm Gran Pct Auto 0.4 % (0.0-0.4); Lymphocytes Percent Auto 37.3 % (20-40); Mean Corpuscular HGB Conc 33.7 g/dl (31.0-35.0); Mean Corpuscular Hemoglobin 28.8 pg (27.0-33.0); Mean Corpuscular Volume 85.6 fL (80.0-98.0); Mean Platelet Volume 10.1 fL (9.4-12.3); Monocytes Absolute Auto 0.4 X10*3/uL (0.1-1.2); Monocytes Percent Auto 7.9 % (2-11); Neutrophils Absolute Auto 2.7 x10*3/uL (2.0-8.3); Neutrophils Percent Auto 50.1 % (45-73); Platelet Count 261 X10*3/uL (160-400); Red Blood Count 4.72 X10*6/uL (4.20-5.50); Red Cell Distribution Width 13.7 % (11.0-16.0); White Blood Count 5.3 X10*3/uL (4.8-10.8)
[2025-05-02 09:27] LABS: Estimated Average Glucose 120 mg/dL; Hemoglobin A1c % 5.8 % (<6.0); Total Hemoglobin (HGBA1C) 3597.7403 umol/L
[2025-05-02 09:54] LABS: Appearance Urine Clear; Color Urine Yellow; Glucose Urine UA Negative (Negative); Leukocyte Esterase Urine Negative (Negative); Nitrite Urine Negative (Negative); Urine Blood Negative (Negative); Urine Ketones Negative (Negative); Urine Protein Negative (Neg-Trace)
[2025-05-02 10:08] LABS: Albumin Level 4.5 g/dL (3.5-5.0); Alkaline Phosphatase 71 U/L (39-117); Anion Gap 13 (12-20); Aspartate Amino Transferase 34 U/L (5-31); Bilirubin Total 0.7 mg/dL (0.0-1.0); Blood Urea Nitrogen 13 mg/dL (9-16); Calcium 9.3 mg/dL (8.4-10.2); Carbon Dioxide 23 mmol/L (22-29); Chloride 111 mmol/L (96-108); Cholesterol 194 mg/dL (<200); Estimated Glomerular Filt Rate > 60; Free T4 (Free Thyroxine) 0.98 ng/dL (0.71-1.85); Glucose Random 95 mg/dL (60-115); HDL Cholesterol 42 mg/dL (>40); LDL Cholesterol Calculated 126 mg/dL (<100); Potassium 4.1 mmol/L (3.3-5.1); Sodium 143 mmol/L (135-145); Thyroid Stimulating Hormone 1.88 uIU/mL (0.32-4.0); Total Protein 7.3 g/dL (6.5-8.0); Triglycerides 134 mg/dL (<150); Vitamin D 25-OH Total 14.6 ng/mL (>30)
[2025-05-02 10:17] LABS: Folate 11.6 ng/mL (> or = 4.0); Vitamin B12 248 pg/mL (200-900)
[2025-05-02 10:29] LABS: Alanine Aminotransferase 40 U/L (0-31)
== END 2025-05-02 08:47 | disposition home or self-care (01) ==
LOC: HO.LAB 08:46
PROVIDERS: PCP Internal Medicine; Visit Provider Internal Medicine
DX: G47.10 Hypersomnia, unspecified (principal); E78.00 Pure hypercholesterolemia, unspecified; R30.0 Dysuria; Z13.1 Encounter for screening for diabetes mellitus
CPT/HCPCS: 36415; 80053; 80061; 81003; 82306; 82607; 82746; 83036; 84439; 84443; 85025

== ENCOUNTER 2025-06-18 09:51 | Outpatient (REF) | payer OTHER, SELFPAY ==
--- NOTE | ~2025-06-18 | US_ITS ---
CLINICAL HISTORY: R79.89 - Other specified abnormal findings of blood chemistry US abdomen complete Comparison: None provided Findings: The visualized pancreas head is normal. Remaining pancreas is obscured by bowel gas. The visualized aorta and inferior vena cava are normal caliber. The liver is not well visualized due to limited acoustic window and markedly echogenic liver parenchyma, mildly enlarged, right lobe length is 17.7 cm. No obvious focal lesion is seen in the visualized liver. No intrahepatic bile duct dilatation. The common duct is 7 mm in diameter. Status post cholecystectomy. The main portal vein is patent with antegrade flow. The right kidney lower pole is not well visualized, grossly normal, 11.9 cm in length. The left kidney is normal, 11.6 cm in length. The spleen is normal, 10.7 cm in length. No free fluid in the abdomen. Impression: 1. Mild hepatomegaly, markedly echogenic liver parenchyma is non-specific, commonly seen in the setting of steatosis or chronic hepatitis. Liver is not well visualized. 2. Status post cholecystectomy. This document has been electronically signed by: Manjula Veras MD on 06/18/2025 12:29:28
== END 2025-06-18 09:52 | disposition home or self-care (01) ==
LOC: HO.US 09:51
PROVIDERS: PCP Internal Medicine; Visit Provider Internal Medicine
DX: R79.89 Other specified abnormal findings of blood chemistry (principal)
CPT/HCPCS: 76700

== ENCOUNTER → 2025-06-18 09:53 | Outpatient (BNV) | payer OTHER, SELFPAY | PROVIDERS: PCP Internal Medicine; Visit Provider Radiology Diagnostic Radiology | DX: R79.89 Other specified abnormal findings of blood chemistry (principal); Z90.5 Acquired absence of kidney | CPT/HCPCS: 76700 ==

== ENCOUNTER 2025-09-08 08:38 | Outpatient (AMB) | payer OTHER, SELFPAY ==
[2025-09-08 08:40] VITALS: BP 122/78; PULSE 83; TEMP 36.2; O2SAT 96; BMI 38.3
--- NOTE | 2025-09-08 08:40 | A.OFFPC_ITS ---
Vital Signs 09/08/25 08:40 Height 5 ft 4 in Weight 223 lb 2 oz BMI 38.3 BP 122/78 Blood Pressure Location Lt brachial Position Sitting Pulse 83 Pulse Source Pulse Oximeter Temp 97.1 F Temp Source Temporal Artery Scan Pulse Oximetry (%) 96 Oxygen Delivery Method Room Air Intake Visit Reasons: PE Allergies No Known Allergies (No Known Allergies*) Allergy (Verified 09/08/25 08:43) Medication List - Last Reconciled 09/08/25 by Renita Harrell MD [KNEE brace R and L As directed] Tobacco use date assessed: 09/08/25 Dental Screening Dental Screen Date: 09/08/25 Did you have a dental visit in the last 12 months?: No Did you have a dental problem in the last 6 months where you did not have access to dental care?: No Was dental information given to patient?: Patient has dentist [facility] Medical History (Updated 09/08/25 @ 09:04 by Renita Harrell MD) LFT elevation Breast cancer screening Colon cancer screening Well woman exam with routine gynecological exam Thyroid enlargement Tinnitus of both ears Vision impairment Temporomandibular joint dysfunction Surgical History History of tubal ligation Family History Father No problems noted. Mother No problems noted. 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 1. Little interest or pleasure in doing things: not at all 2. Feeling down, depressed, or hopeless: not at all 3. Trouble falling or staying asleep, or sleeping too much: not at all 4. Feeling tired or having little energy: not at all 5. Poor appetite or overeating: not at all 6. Feeling bad about yourself - or that you are a failure or have let yourself or your family down: not at all 7. Trouble concentrating on things, such as reading the newspaper or watching television: not at all 8. Moving or speaking so slowly that other people could have noticed. Or the opposite - being so fidgety or restless that you have been moving around a lot more than usual: not at all 9. Thoughts that you would be better off or of hurting yourself in some way: not at all Total score: 0 Depression Screening Interpretation: Negative Depression Screening Done: Yes Source: Developed by Drs. Ryan Leone, Betty Smyth, Tru Fishman and colleagues, with an educational yaneli from [employer]. Thrive Questionnaire Date Thrive assessed: 01/26/25 I am a: Patient What is your living situation today?: I have a steady place to live Within the past 12 months, did the food you bought not last and you didn't have the money to get more?: Often true Within the past 12 months, did you worry whether your food would run out before you got money to buy more?: Sometimes True Do you have trouble paying for medicines?: No Do you have trouble getting transportation to medical appointments?: Yes Do you have trouble paying your heating and electricity bill?: Yes Do you have trouble taking care of your child, family member or friend?: No Do you have trouble with day-to-day activities such as bathing, preparing meals, shopping, managing finances, etc.?: No Are you currently unemployed and looking for a job?: No Are you interested in more education?: No Please select the resources that you would like help with: None Currently or been in a relationship where the following occur: I choose not to answer THRIVE Score: 4 AUDIT C Alcohol Use Questionnaire (AUDIT-C) 1. How often do you have a drink containing alcohol?: Never 3. How often do you have six or more drinks on one occasion?: Never Total Score: 0 JIMMIE-7 AMB Questionnaire JIMMIE-7 Date JIMMIE - 7 assessed: 01/26/25 Feeling nervous, anxious, or on edge: 0 = Not at all Not being able to stop or control worryin = Not at all Worrying too much about different things: 0 = Not at all Trouble relaxin = Not at all Being so restless that it is hard to sit still: 0 = Not at all Becoming easily annoyed or irritable: 0 = Not at all Feeling afraid as if something awful might happen: 0 = Not at all Total JIMMIE-7 score (0-4 normal; 5-9 mild; 10-14 moderate; 15-21 severe): 0 Source: Developed by Drs. Ryan Leone, Betty Smyth, Tru Fishman and colleagues, with an educational yaneli from [employer]. Review of Systems Const Denies poor appetite and Denies weakness Eyes Denies no additional complaints ENT Reports Normal hearing present, Denies dizziness, Denies nasal congestion, Denies tinnitus and Denies sore throat Card Denies chest pain, Denies syncope, Denies rapid heart rate and Denies dyspnea Resp Denies cough and Denies dyspnea GI Denies change in stool character, Reports constipation, Denies diarrhea, Denies nausea and Denies vomiting Denies urinary frequency, Denies difficulty voiding and Denies dysuria Neuro Reports Normal hearing present, Denies confusion, Denies dizziness, Denies syncope and Denies weakness Psych Denies confusion Physical exam (Primary Care) Vital Signs: Last Vital Signs Temp 97.1 F 09/08/25 08:40 Pulse 83 09/08/25 08:40 BP 122/78 09/08/25 08:40 Pulse Ox 96 09/08/25 08:40 Oxygen Delivery Method Room Air 09/08/25 08:40 BMI result Body Mass Index 38.3 Tobacco/Smoking Status: Tobacco use Status Tobacco use date assessed 09/08/25 09/08/25 08:44 Patient Tobacco Use Status Never used Tobacco 09/08/25 08:44 Tobacco use type Cigarette 09/08/25 08:44 e-Cigarette/Vaping Use Never Used 09/08/25 08:44 PHQ-9: PHQ-9 Score PHQ-9: Total score 0 09/08/25 08:48 Depression Screening Interpretation: Negative Thrive Assessment: Date of Thrive Assessment Date Thrive assessed 01/26/25 09/08/25 08:44 Currently or been in a relationship where the following occur: I choose not to answer Const General: No confusion Orientation/consciousness: No confusion HENMT Head: Yes normocephalic Ears: external ears normal and TM's normal bilaterally Face and sinus: Yes normal facial exam Mouth: moist mucous membranes Throat: Yes tonsils normal Eyes Conjunctivae: conjunctivae normal Pupils: Equal, round and reactive pupils present and Pupil accommodation reflex normal Direct Ophthalmoscopy: normal light reflex Neck Neck: No lymphadenopathy Thyroid: Thyroid normal Chest Chest palpation & inspection: normal inspection of the chest Resp Effort & Inspection: normal respiratory effort and no audible wheezes Auscultation: clear to auscultation bilaterally, no crackles, no wheezes and lung sounds not diminished Cardio Rate: regular rate Rhythm: regular rhythm Peripheral pulses: radial pulses present and dorsalis pedis present GI Palpation (GI): no masses Auscultation: normal bowel sounds and normoactive bowel sounds Rectal Exam - Female: deferred Skin General skin exam: no rashes or lesions noted Rashes: no rashes Neuro General: No confusion Cranial nerves: Yes Equal, round and reactive pupils present and Yes Normal hearing present Cognition (Neuro): normal cognition Gait exam (Neuro): Normal gait present Motor exam (neuro): 5/5 motor strength present throughout Deep tendon reflexes (DTR's): Right brachioradialis reflex intensity grade: 2+, Left brachioradialis reflex intensity grade: 2+, Right patellar reflex intensity grade: 2+ and Left patellar reflex intensity grade: 2+ Extrem General: No edema Coding Level of Care Code Est Pt Prev Care 40-64y(22882) Diagnoses Annual physical exam Z00.00 Osteoarthritis of knees, bilateral M17.0 Breast cancer screening by mammogram Z12.31 Hepatic steatosis K76.0 Obesity (BMI 30-39.9) E66.9 Generalized anxiety disorder F41.1 Impaired glucose tolerance R73.02 Vitamin D deficiency E55.9 Vitamin B 12 deficiency E53.8 Bilateral shoulder pain M25.511; M25.512 Assessment & Plan Assessment & Plan (1) Annual physical exam: Code(s): Z00.00 - Encounter for general adult medical examination without abnormal findings Category: Medical Plan: Patient is advised to eat healthy, keep well hydrated, keep active and have adequate sleep. (2) Osteoarthritis of knees, bilateral: Code(s): M17.0 - Bilateral primary osteoarthritis of knee Category: Medical Plan: Keep active and is the weight (3) Breast cancer screening by mammogram: Code(s): Z12.31 - Encounter for screening mammogram for malignant neoplasm of breast Category: Medical Plan: Patient is reminded about mammogram (4) Hepatic steatosis: Comment: June 2025 Code(s): K76.0 - Fatty (change of) liver, not elsewhere classified Category: Medical Plan: Low-fat diet and exercise (5) Obesity (BMI 30-39.9): Code(s): E66.9 - Obesity, unspecified Category: Medical Plan: Diet and exercise (6) Generalized anxiety disorder: Code(s): F41.1 - Generalized anxiety disorder Category: Medical Plan: Stable (7) Impaired glucose tolerance: Code(s): R73.02 - Impaired glucose tolerance (oral) Category: Medical Plan: Decrease the amount of carbohydrate intake, pasta, bread, rice and potatoes are all sugar and that is aside from all the sweet stuff, remember that fruits are good but they are Sweet also. (8) Vitamin D deficiency: Code(s): E55.9 - Vitamin D deficiency, unspecified Category: Medical (9) Vitamin B 12 deficiency: Code(s): E53.8 - Deficiency of other specified B group vitamins Category: Medical (10) Bilateral shoulder pain: Code(s): M25.511 - Pain in right shoulder; M25.512 - Pain in left shoulder Category: Medical Plan History of Present Illness The patient is a 54-year-old obese female presenting for a physical examination and management of chronic conditions. She has a history of bilateral knee osteoarthritis, hypercholesterolemia, generalized anxiety disorder, and hepatic steatosis. Her last visit was in April 2025. Recent blood work from April revealed several findings. Her hemoglobin A1c was 5.8%, indicating prediabetes. She had mildly elevated liver function tests, with one value at 40 (normal <31), which prompted a liver ultrasound that confirmed hepatic steatosis. Labs also showed low vitamin B12 at 248 (target >300) and low vitamin D. Her total cholesterol was 194 and LDL was 126, both within acceptable limits but trending upwards. A complete blood count, electrolytes, renal function, and thyroid studies were all normal. The patient reports significant bilateral knee pain from osteoarthritis, for which she currently is not taking naproxen but requests a refill as home remedies have been ineffective and the pain is severe. She has also had bilateral shoulder pain for nearly a year, which is worse at night and with carrying items at her job. The patient reports sometimes waking up short of breath. A sleep study earlier this year was negative for sleep apnea but showed she stops breathing a couple of times at night, with an apnea rate of 12 times per hour when supine versus 3 times per hour when on her side. She tries to sleep on her side but this causes shoulder discomfort. Family history is significant for a father who had a heart attack. There is no family history of cancer. Patient has no known drug allergies. Her mammogram is due, and her last colonoscopy was in 2019. Health Maintenance The patient is due for a mammogram and was advised to schedule one. For her low Vitamin D, the patient was advised to take an xctz-goq-ycjyglk 2000 unit supplement daily. For her low Vitamin B12, dietary sources were reviewed. Vaccination status was reviewed; the shingles vaccine was recommended, and the patient is considering it. A follow-up visit is scheduled in three months to monitor her progress. Social History - Alcohol Use: Drinks occasionally on holidays, consuming less than two beers or one glass of wine at a time. - Tobacco Use: Denies ever smoking cigarettes, with the exception of trying it in high school. - Illicit Drug Use: Denies any history of recreational drug use. 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 - Exercise: Attempts to exercise but finds her arthritis to be a barrier. - Nutrition: Advised on a low-fat diet, consuming more vegetables and less meat, and avoiding fried foods, fast foods, and pastries. - She does not buy or drink soda. Review of Systems - General: Denies fevers or syncope. - HEENT: Hearing is reported as good. - Denies problems with swallowing. - Cardiovascular: Denies chest pain, including with activity. - Respiratory: Reports occasionally waking up short of breath. - Gastrointestinal: Reports good bowel movements. - Denies nausea, vomiting, or heartburn. - Denies any blood in her stool. - Genitourinary: Reports urination is okay. - Musculoskeletal: Reports bilateral shoulder pain that has been present for almost a year. - Reports significant knee pain for which she wants a naproxen refill. - Neurological: Denies dizziness. Physical Exam General: Cooperative, obese, healthy appearing, comfortable, no acute distress and well developed Orientation: Patient oriented x3 Limitations: No limitations Head: Normal to inspection Ears: Hearing grossly normal bilaterally Nose: Normal external nose present Face and sinus: Normal facial exam Eyes: Appearance normal, both eyes and all related structures Neck: Normal visual inspection and Yes full ROM Respiratory: Normal respiratory effort and able to speak in complete sentences. Clear to auscultation bilaterally Cardiovascular: Regular rate and rhythm. Normal S1 and S2 GI: Normal to inspection. Soft to palpation and nontender Skin: No rashes or lesions noted Neuro: Patient oriented x3 Extremities: Normal to inspection Results - Labs (from April): - CBC: Normal, with no anemia. - White blood cell and platelet counts are good. - Chemistry Panel: Normal electrolytes, including sodium and potassium, and normal renal function. - Hemoglobin A1c: 5.8%. - Liver Function Test: Mildly elevated, with one value at 40 (normal <31). - Lipid Panel: Total cholesterol is 194 (previously 187), LDL is 126 (previously 116). - Vitamin B12: Low at 248 (reference >300). - Vitamin D: Low. - Thyroid Function: Normal. - Urinalysis: Clean. - Imaging and Tests: - Liver Ultrasound: Showed hepatic steatosis (fatty liver). - Sleep Study: Negative for sleep apnea, but recorded apnea events of 12 per hour while supine and 3 per hour while on her side. Plan Patient was informed and verbally consented to the use of an ambient scribe for clinic note documentation during this visit. 1. Obesity The patient inquired about medication for weight management. The benefits of weight loss were discussed, including improvements in sleep apnea, blood pressure, and cholesterol. Potential issues with weight loss medications were reviewed, including availability, insurance coverage, and the lack of long-term 20-year safety data. A prescription for a weight management injection will be sent, starting at the lowest dose of 2.5mg once weekly. The patient was counseled that the most common side effect is nausea and that she should report if she experiences significant nausea or vomiting. She was instructed to message after 3 weeks if she does not experience any weight loss, so the dose can be adjusted. Emphasis was placed on combining the medication with a healthy diet and exercise, with the goal of not being on the medication for life. 2. Impaired Glucose Tolerance The patient's Hemoglobin A1c of 5.8% indicates a prediabetic state, which serves as a warning. No medication is being prescribed at this time. The patient was extensively counseled on dietary modifications, including reducing the intake of carbohydrates like pasta, bread, rice, and potatoes, and being mindful of sugar in fruits, to manage her blood sugar. 3. Bilateral Knee Osteoarthritis The patient reports significant knee pain and requested a refill of naproxen. A refill for naproxen will be sent to the pharmacy. The patient was counseled to take naproxen with food to avoid stomach upset and was informed of the risk of kidney problems with long-term use. She was advised to use it only when needed and that it can be alternated with Tylenol. 4. Bilateral Shoulder Arthralgia The patient reports chronic bilateral shoulder pain for almost a year, which may be related to arthritis. An order for bilateral shoulder X-rays will be placed to further evaluate the pain. 5. Hepatic Steatosis The patient was diagnosed with fatty liver via ultrasound, prompted by mildly elevated LFTs. It was explained that this is a benign problem currently but can progress to cirrhosis if unaddressed. The primary treatment is diet and exercise, and the patient was counseled to eat a healthy diet with less meat and more vegetables, and to avoid fried foods, fast foods, and pastries. Discussion Notes I reviewed the patient's recent lab work with her in detail. I explained that her blood sugar is in the prediabetic range and her liver ultrasound showed fatty liver, emphasizing that both conditions are best managed with diet and exercise. We discussed her cholesterol, which is within the normal range but trending up, and her low levels of vitamin B12 and D, for which I provided dietary and supplement recommendations. We discussed her interest in weight management medication. I outlined the benefits (weight loss, improved metabolic parameters) and the potential problems, including availability, insurance coverage, and the fact that there is no long-term (20-year) safety data for these newer medications. The patient understood and agreed that the medication should be used as a tool alongside lifestyle changes, not as a permanent solution. I informed her that contraindications like a history of thyroid cancer are not present in her case. I addressed her knee pain by refilling her naproxen prescription, with cautions about taking it with food and monitoring for side effects. For her new complaint of bilateral shoulder pain, I ordered X-rays to investigate further. We also reviewed health maintenance, including her due mammogram and vaccination status, and I recommended the shingles vaccine. The patient deferred her rectal exam to her commissioned fire officer. A follow-up appointment in three months was advised. Patient Instructions - You will receive a new prescription for a once-weekly injection to help with weight loss. - Please message me in three weeks if you have not lost any weight on this new medication. - A prescription for Naproxen has been sent for your knee pain. - Please take it with food and only when you really need it. - An order has been placed for X-rays of both of your shoulders to check for the cause of your pain. - Please make an appointment to get your mammogram done, as it is now due. - Take an [id number] Vitamin D supplement of 2000 units once a day. - Focus on eating a healthy diet by reducing sugars and carbohydrates (like bread, rice, pasta) and eating more vegetables and less meat. - Avoid soda and fried foods. - Try to stay active and keep moving as much as your arthritis allows. - Consider getting the shingles vaccine, which is available at the pharmacy. - Please schedule a follow-up appointment in three months. Orders: Orders XR Shoulder Sadiq min 2V Today M25.511 - Pain in right shoulder, M25.512 - Pain in left shoulder MM tomosynthesis screening BI Today Z12.31 - Encounter for screening mammogram for malignant neoplasm of breast Medications: New tirzepatide (weight loss) (Zepbound) for 4 weeks 2.5 mg (0.5 mL) subcut QWEEK 2 mL 1RF E66.9 - Obesity, unspecif ied Refilled naproxen 500 mg PO Q12H 60 tabs 1RF M25.562 - Pain in left knee
== END 2025-09-08 10:02 | disposition home or self-care (01) ==
LOC: HO.HMCH 08:38
PROVIDERS: PCP Internal Medicine; Visit Provider Internal Medicine
DX: Z00.00 Encounter for general adult medical examination without abnormal findings (principal); M17.0 Bilateral primary osteoarthritis of knee; E66.9 Obesity, unspecified; Z68.38 Body mass index [BMI] 38.0-38.9, adult; Z12.31 Encounter for screening mammogram for malignant neoplasm of breast; K76.0 Fatty (change of) liver, not elsewhere classified; F41.1 Generalized anxiety disorder; R73.02 Impaired glucose tolerance (oral); E55.9 Vitamin D deficiency, unspecified; E53.8 Deficiency of other specified B group vitamins; M25.511 Pain in right shoulder; M25.512 Pain in left shoulder

== ENCOUNTER 2025-09-12 09:50 | Outpatient (REF) | payer OTHER, SELFPAY ==
--- NOTE | ~2025-09-12 | XR_ITS ---
EXAMINATION: X-ray bilateral shoulders CLINICAL INFORMATION: Pain COMPARISON: X-ray left shoulder 07/31/2016 TECHNIQUE: Right shoulder 4 views. Left shoulder 4 views. FINDINGS: Right shoulder: Mild acromioclavicular arthritis. Mild glenohumeral arthritis. No visible acute fracture, dislocation or suspicious bony lesion. No abnormal soft tissue calcification. Left shoulder: Mild acromioclavicular arthritis. Mild-moderate glenohumeral arthritis. No visible acute fracture, dislocation or suspicious bony lesion. No abnormal soft tissue calcification. XR/XR Shoulder Sadiq min 2V IMPRESSION: Right shoulder: No acute osseous findings. Arthritis as above. Left shoulder: No acute findings. Arthritis as above. Electronically signed by: Chris Herman MD 09/14/2025 11:47 AM [facility]
== END 2025-09-12 09:51 | disposition home or self-care (01) ==
LOC: HO.XRAY 09:50
PROVIDERS: PCP Internal Medicine; Visit Provider Internal Medicine
DX: M25.511 Pain in right shoulder (principal); M25.512 Pain in left shoulder
CPT/HCPCS: 73030

== ENCOUNTER → 2025-09-12 10:15 | Outpatient (BNV) | payer OTHER, SELFPAY | PROVIDERS: PCP Internal Medicine; Visit Provider Radiology Diagnostic Ultrasound | DX: M19.011 Primary osteoarthritis, right shoulder (principal); M19.012 Primary osteoarthritis, left shoulder | CPT/HCPCS: 73030 ==